=== PATIENT | female | born 2000 | race Caucasian/White ===

== ENCOUNTER 2021-02-09 07:28 | Inpatient (IN) | payer BC, SELFPAY ==
[~2021-02-09] VITALS: Ht 170.2 cm; Wt 61.7 kg
[2021-02-09 07:32] VITALS: BP 141/109
[2021-02-09] MEDS ORDERED: FAMOTIDINE 20 MG/2 ML VIAL IVP ONE (07:45)
[2021-02-09] MEDS ORDERED: KETOROLAC 15 MG/ML VIAL IVP ONE (07:45)
[2021-02-09] MEDS ORDERED: ONDANSETRON 4 MG/2 ML VIAL IVP ONE ×2 (07:45→08:10)
[2021-02-09] MEDS: NACL 0.9% 1,000 ML IV SCH ×2 (07:57→08:01)
[2021-02-09 08:05] LABS: BASOPHILS # (AUTO) 0.1 K/uL (0.00-0.22); BASOPHILS % (AUTO) 0.6 % (0.0-2.0); EOSINOPHILS % (AUTO) 0.3 % (0.0-4.0); HEMATOCRIT 35.7 % (36-48); HEMOGLOBIN 11.2 g/dL (12.0-16.0); LYMPHOCYTES # (AUTO) 2.1 K/uL (2.5-16.5); LYMPHOCYTES % (AUTO) 17.1 % (20.5-51.1); MEAN CORPUSCULAR HEMOGLOBIN 23 pg (27-31); MEAN CORPUSCULAR HGB CONC 31 g/dL (33-37); MONOCYTES # (AUTO) 0.8 K/uL (0.8-1.0); MONOCYTES % (AUTO) 6.7 % (1.7-9.3); NEUTROPHILS # (AUTO) 9.4 K/uL (1.8-7.7); NEUTROPHILS % (AUTO) 75.3 % (42.2-75.2); PLATELET COUNT (AUTO) 380 K/uL (140-450); RED BLOOD CELL COUNT(AUTO) 4.77 MIL/uL (4.20-5.40); WHITE BLOOD COUNT (AUTO) 12.5 K/uL (4.5-11.0)
[2021-02-09 08:14] LABS: ANION GAP 16.7 (8-16); CARBON DIOXIDE 24.5 mmol/L (21-32); CREATININE 0.9 mg/dL (0.6-1.3); POTASSIUM 3.2 mmol/L (3.5-5.1)
[2021-02-09] MEDS ORDERED: LORazepam 2 MG/ML VIAL IVP ONE ×2 (08:15→10:20)
[2021-02-09] MEDS ORDERED: LORazepam 2 MG/ML VIAL ONE (08:17)
[2021-02-09 08:20] LABS: ALBUMIN 4.8 g/dL (3.4-5.0); TOTAL BILIRUBIN 0.4 mg/dL (0.0-1.0)
[2021-02-09] MEDS ORDERED: NACL 0.9% 1,000 ML IV ONE (08:50)
[2021-02-09] MEDS ORDERED: METOCLOPRAMIDE 10 MG/2 ML INJ VIAL IVP ONE ×2 (09:15→10:20)
[2021-02-09] MEDS ORDERED: diphenhydrAMINE 50 MG/ML VIAL IVP ONE (09:15)
[2021-02-09 09:30] LABS: BILIRUBIN,URINE NEGATIVE (NEGATIVE); BLOOD, URINE NEGATIVE (NEGATIVE); COLOR,URINE YELLOW (YELLOW); LEUKOCYTE ESTERASE ,URINE TRACE (NEGATIVE); NITRITE, URINE NEGATIVE (NEGATIVE); UGLUCOSE NEGATIVE (NEGATIVE)
[2021-02-09 09:39] LABS: APPEARANCE,URINE SLIGHTLY HAZY (CLEAR)
[2021-02-09 09:40] LABS: RBC,URINE 0-5 /HPF (0-5); WBC,URINE 0-5 /HPF (0-5)
[2021-02-09] MEDS ORDERED: KCL 20 MEQ/WATER INJ PREMIX 200 ML IV PRN (12:05)
[2021-02-09] MEDS ORDERED: ACETAMINOPHEN 325 MG TAB PO PRN (12:05)
[2021-02-09] MEDS ORDERED: HYDROcodone/APAP 7.5/325 MG 1 TAB PO PRN (12:05)
[2021-02-09] MEDS ORDERED: DOCUSATE SODIUM 100 MG GELCAP PO PRN (12:05)
[2021-02-09] MEDS ORDERED: guaiFENesin DM 200/20 MG-10 ML 10 ML UDC PO PRN (12:05)
[2021-02-09] MEDS ORDERED: cefTRIAXone 1,000 MG in LIDOCAINE MPF 1% 2.1 ML IM SCH (12:10)
[2021-02-09] MEDS: DEXT 5% /NACL 0.9% 1,000 ML IV SCH ×2 (12:22→23:08)
[2021-02-09 12:49] LABS: PROTHROMBIN TIME 10.2 secs (10.8-13.4)
[2021-02-09 12:57] LABS: FREE T4 (FREE THYROXINE) 1.44 ng/dL (0.76-1.46); PHOSPHORUS 3.4 mg/dL (2.5-4.9); THYROID STIMULATING HORMONE 1.95 uIU/mL (0.34-3.74)
[2021-02-09] MEDS: ONDANSETRON 8 MG in NACL 0.9% 50 ML IV PRN ×2 (13:45→21:37)
[2021-02-09] MEDS: LORazepam 2 MG/ML VIAL IVP PRN (13:58)
[2021-02-09] MEDS: MORPHINE SULFATE 2 MG/ML SYR IVP PRN ×2 (13:58→20:50)
[2021-02-09] MEDS ORDERED: POTASSIUM CHLORIDE 40 MEQ, LIDOCAINE MPF 1% 25 MG in NACL 0.9% 250 ML IV SCH (14:30)
[2021-02-09 15:11] VITALS: BP 138/96
[2021-02-09 16:00] VITALS: BP 134/94
[2021-02-09 18:16] LABS: BARBITURATE, URINE NEGATIVE ng/ml (NEG <=200); BENZODIAZEPINE, URINE NEGATIVE ng/mL (NEG <=200); CANNABINOID, URINE POSITIVE ng/mL (NEG <=50); COCAINE, URINE NEGATIVE ng/mL (NEG <=300); OPIATE, URINE NEGATIVE ng/mL (NEG <=2000); PHENCYCLIDINE SCREEN,URINE NEGATIVE ng/mL (NEG <=25)
[2021-02-09 20:00] VITALS: BP 148/92
[2021-02-10 01:10] LABS: CHOL/HDL RATIO 2.3 (1-4.5)
[2021-02-10] MEDS: ONDANSETRON 4 MG/2 ML VIAL IM/IVP PRN ×2 (01:23→23:13)
[2021-02-10] MEDS: LORazepam 2 MG/ML VIAL IVP PRN ×3 (01:24→18:49)
[2021-02-10] MEDS: ONDANSETRON 8 MG in NACL 0.9% 50 ML IV PRN ×3 (03:38→18:59)
[2021-02-10 04:00] VITALS: BP 136/91
[2021-02-10] MEDS: DEXT 5% /NACL 0.9% 1,000 ML IV SCH ×3 (04:05→20:05)
[2021-02-10] MEDS: MORPHINE SULFATE 2 MG/ML SYR IVP PRN ×3 (05:53→18:50)
[2021-02-10 05:56] LABS: ANION GAP 16.4 (8-16); CARBON DIOXIDE 26.1 mmol/L (21-32); CREATININE 0.7 mg/dL (0.6-1.3); POTASSIUM 3.5 mmol/L (3.5-5.1)
[2021-02-10 06:04] LABS: BASOPHILS % (AUTO) 0.4 % (0.0-2.0); HEMATOCRIT 31.8 % (36-48); HEMOGLOBIN 10.3 g/dL (12.0-16.0); LYMPHOCYTES # (AUTO) 1.3 K/uL (2.5-16.5); MEAN CORPUSCULAR HEMOGLOBIN 24 pg (27-31); MEAN CORPUSCULAR HGB CONC 32 g/dL (33-37); MEAN CORPUSCULAR VOLUME 74.7 fL (80-94); MONOCYTES # (AUTO) 0.8 K/uL (0.8-1.0); MONOCYTES % (AUTO) 7.6 % (1.7-9.3); NEUTROPHILS # (AUTO) 7.9 K/uL (1.8-7.7); PLATELET COUNT (AUTO) 297 K/uL (140-450); RED BLOOD CELL COUNT(AUTO) 4.26 MIL/uL (4.20-5.40); RED CELL DISTRIBUTION WIDTH 18.9 % (11.6-13.7)
[2021-02-10 08:00] VITALS: BP 114/66
[2021-02-10] MEDS: PANTOPRAZOLE 40 MG INJ VIAL IVP SCH (10:00)
[2021-02-10 10:07] LABS: T4 (THYROXINE) 10.3 ug/dL (4.5-12.0)
[2021-02-10 16:00] VITALS: BP 139/89
[2021-02-10 20:00] VITALS: BP 118/79
[2021-02-11] MEDS: MORPHINE SULFATE 2 MG/ML SYR IVP PRN ×4 (00:52→21:02)
[2021-02-11] MEDS: DEXT 5% /NACL 0.9% 1,000 ML IV SCH ×2 (01:03→12:45)
[2021-02-11] MEDS: LORazepam 2 MG/ML VIAL IVP PRN ×3 (03:01→21:06)
[2021-02-11 04:00] VITALS: BP 147/83
[2021-02-11] MEDS: ONDANSETRON 8 MG in NACL 0.9% 50 ML IV PRN ×2 (05:42→21:11)
[2021-02-11 08:00] VITALS: BP 146/95
[2021-02-11] MEDS: PANTOPRAZOLE 40 MG INJ VIAL IVP SCH (08:25)
[2021-02-11] MEDS: ONDANSETRON 4 MG/2 ML VIAL IM/IVP PRN ×3 (08:25→23:18)
[2021-02-11 11:19] LABS: BASOPHILS % (AUTO) 0.5 % (0.0-2.0); EOSINOPHILS % (AUTO) 0.2 % (0.0-4.0); HEMATOCRIT 32.9 % (36-48); HEMOGLOBIN 10.4 g/dL (12.0-16.0); LYMPHOCYTES # (AUTO) 1.2 K/uL (2.5-16.5); LYMPHOCYTES % (AUTO) 15.8 % (20.5-51.1); MEAN CORPUSCULAR HEMOGLOBIN 24 pg (27-31); MEAN CORPUSCULAR HGB CONC 32 g/dL (33-37); MEAN CORPUSCULAR VOLUME 75.3 fL (80-94); MONOCYTES # (AUTO) 0.7 K/uL (0.8-1.0); MONOCYTES % (AUTO) 8.9 % (1.7-9.3); NEUTROPHILS # (AUTO) 5.7 K/uL (1.8-7.7); NEUTROPHILS % (AUTO) 74.6 % (42.2-75.2); PLATELET COUNT (AUTO) 284 K/uL (140-450); RED BLOOD CELL COUNT(AUTO) 4.38 MIL/uL (4.20-5.40); RED CELL DISTRIBUTION WIDTH 19.1 % (11.6-13.7); WHITE BLOOD COUNT (AUTO) 7.7 K/uL (4.5-11.0)
[2021-02-11 11:37] LABS: ANION GAP 14.3 (8-16); CARBON DIOXIDE 25.9 mmol/L (21-32); CREATININE 0.6 mg/dL (0.6-1.3); POTASSIUM 3.2 mmol/L (3.5-5.1)
[2021-02-11 16:00] VITALS: BP 139/81
[2021-02-11 20:00] VITALS: BP 143/102
[2021-02-11] MEDS: ZOLPIDEM 5 MG TAB PO PRN (23:47)
[2021-02-12] MEDS: DEXT 5% /NACL 0.9% 1,000 ML IV SCH ×3 (01:26→18:37)
[2021-02-12] MEDS: MORPHINE SULFATE 2 MG/ML SYR IVP PRN ×2 (01:37→06:51)
[2021-02-12 04:00] VITALS: BP 147/116
[2021-02-12] MEDS: ONDANSETRON 8 MG in NACL 0.9% 50 ML IV PRN ×3 (04:57→23:00)
[2021-02-12] MEDS: LORazepam 2 MG/ML VIAL IVP PRN ×3 (05:12→22:58)
[2021-02-12 08:00] VITALS: BP 145/95
[2021-02-12] MEDS: PANTOPRAZOLE 40 MG INJ VIAL IVP SCH (10:02)
[2021-02-12] MEDS: ONDANSETRON 4 MG/2 ML VIAL IM/IVP PRN ×2 (11:13→18:45)
[2021-02-12] MEDS: KETOROLAC 30 MG/ML VIAL IVP PRN ×3 (11:13→23:31)
[2021-02-12 11:32] LABS: ANION GAP 15.8 (8-16); CARBON DIOXIDE 26.9 mmol/L (21-32); CREATININE 0.7 mg/dL (0.6-1.3); POTASSIUM 3.7 mmol/L (3.5-5.1)
[2021-02-12 16:00] VITALS: BP 142/93
[2021-02-12 20:00] VITALS: BP 136/98
[2021-02-12] MEDS: ZOLPIDEM 5 MG TAB PO PRN (23:37)
[2021-02-13] MEDS: DEXT 5% /NACL 0.9% 1,000 ML IV SCH ×4 (01:00→21:01)
[2021-02-13] MEDS: ONDANSETRON 4 MG/2 ML VIAL IM/IVP PRN ×5 (02:56→22:23)
[2021-02-13 04:00] VITALS: BP 143/93
[2021-02-13] MEDS: KETOROLAC 30 MG/ML VIAL IVP PRN ×3 (05:34→21:04)
[2021-02-13] MEDS: PANTOPRAZOLE 40 MG INJ VIAL IVP SCH (09:53)
[2021-02-13] MEDS: LORazepam 2 MG/ML VIAL IVP PRN ×2 (09:54→18:35)
[2021-02-13 20:00] VITALS: BP 147/94
[2021-02-14] MEDS: ONDANSETRON 4 MG/2 ML VIAL IM/IVP PRN ×2 (02:24→06:05)
[2021-02-14] MEDS: LORazepam 2 MG/ML VIAL IVP PRN (02:24)
[2021-02-14] MEDS: DEXT 5% /NACL 0.9% 1,000 ML IV SCH (03:40)
[2021-02-14 04:00] VITALS: BP 131/95
[2021-02-14] MEDS: KETOROLAC 30 MG/ML VIAL IVP PRN (05:51)
[2021-02-14 08:57] LABS: BASOPHILS % (AUTO) 0.6 % (0.0-2.0); EOSINOPHILS % (AUTO) 0.5 % (0.0-4.0); HEMATOCRIT 37.9 % (36-48); LYMPHOCYTES # (AUTO) 1.8 K/uL (2.5-16.5); LYMPHOCYTES % (AUTO) 22.7 % (20.5-51.1); MEAN CORPUSCULAR HEMOGLOBIN 24 pg (27-31); MEAN CORPUSCULAR HGB CONC 32 g/dL (33-37); MEAN CORPUSCULAR VOLUME 74.6 fL (80-94); MONOCYTES # (AUTO) 0.9 K/uL (0.8-1.0); MONOCYTES % (AUTO) 11.3 % (1.7-9.3); NEUTROPHILS # (AUTO) 5.1 K/uL (1.8-7.7); NEUTROPHILS % (AUTO) 64.9 % (42.2-75.2); PLATELET COUNT (AUTO) 325 K/uL (140-450); RED BLOOD CELL COUNT(AUTO) 5.07 MIL/uL (4.20-5.40); RED CELL DISTRIBUTION WIDTH 18.5 % (11.6-13.7); WHITE BLOOD COUNT (AUTO) 7.9 K/uL (4.5-11.0)
[2021-02-14 09:01] LABS: CREATININE 0.8 mg/dL (0.6-1.3)
[2021-02-14 09:38] LABS: POTASSIUM 2.8 mmol/L (3.5-5.1)
[2021-02-14 09:40] LABS: ANION GAP 17.5 (8-16); CARBON DIOXIDE 24.3 mmol/L (21-32)
== END 2021-02-14 09:55 | disposition left against medical advice (07) | DRG 871 ==
LOC: MED 07:28 → MTU 11:22
PROVIDERS: ADMIT Family Medicine; ATTEND Family Medicine
DX: A41.9 Sepsis, unspecified organism (principal); G92 Toxic encephalopathy; N39.0 Urinary tract infection, site not specified; E86.0 Dehydration; E87.6 Hypokalemia; F12.90 Cannabis use, unspecified, uncomplicated; R11.2 Nausea with vomiting, unspecified; F17.210 Nicotine dependence, cigarettes, uncomplicated; D72.829 Elevated white blood cell count, unspecified; F41.0 Panic disorder [episodic paroxysmal anxiety]; Z53.29 Procedure and treatment not carried out because of patient's decision for other reasons; Z88.8 Allergy status to other drugs, medicaments and biological substances; Z76.5 Malingerer [conscious simulation]; D64.9 Anemia, unspecified; Z20.822 Contact with and (suspected) exposure to COVID-19
CPT/HCPCS: 36415; 71045; 80048; 80053; 80305; 81001; 82150; 83036; 83690; 83735; 83880; 84100; 84436; 84439; 84443; 84479; 84484; 85025; 85610; 85730; 87081; 96361; 96374; 96375; 96376; 99285; C9113; J0696; J1200; J1885; J2001; J2060; J2270; J2405; J2765; J3480; J3490; J7030; J7060

== ENCOUNTER 2021-02-20 15:27 | Inpatient (IN) | payer BC, SELFPAY ==
[~2021-02-20] VITALS: Ht 170.2 cm; Wt 59.9 kg
[2021-02-20 15:49] VITALS: BP 132/99
--- NOTE | 2021-02-20 15:55 | NUR ---
Patient wheelchaired to bed 06.
[2021-02-20] MEDS ORDERED: diphenhydrAMINE 50 MG/ML VIAL IVP ONE (16:00)
[2021-02-20] MEDS ORDERED: NACL 0.9% 1,000 ML IV SCH (16:00)
[2021-02-20] MEDS ORDERED: PROCHLORPERAZINE 10 MG/2 ML VIAL IVP ONE (16:00)
--- NOTE | 2021-02-20 16:13 | NUR ---
RAD at bedside.
--- NOTE | 2021-02-20 16:25 | NUR ---
Dr. Barnett is evaluating patient at bedside.
[2021-02-20] MEDS ORDERED: ONDANSETRON 4 MG/2 ML VIAL IVP ONE (16:30)
[2021-02-20] MEDS ORDERED: MORPHINE SULFATE 4 MG/ML SYR IVP ONE (16:30)
[2021-02-20] MEDS ORDERED: LORazepam 2 MG/ML VIAL IVP ONE (16:30)
--- NOTE | 2021-02-20 16:30 | NUR ---
20 Y/O FEMALE C/O NAUSEA,VOMITING, AND ABDOMINAL PAIN X1 WEEK. PT WAS ADMITTED HERE AND D/C 02/14 WITH SAME COMPLAINT. PT ALSO WENT TO [place] FOR SAME REASON. PT STATES SHE IS NOT ABLE TO KEEP ANYTHING DOWN. PATIENT A&OX4, WHEELCHAIR ASSISTED, STATES SHE NAUSEA/VOMITING X 4-17 EPISODES PER DAY. PATIENT ALSO REPORTS ABDOMINAL PAIN; UMBILICAL REGION; 9/10, PRESSURE/CONSTANT, NON-RADIATING PAIN. DENIES ANY MEDICATION PRIOR TO ARRIVAL. DENIES DIZZINESS, HEADACHE, SOB, COUGH, URINARY SYMPTOMS, BACK PAIN, BLURRY VISION, CHEST PAIN. PT PLACED INTO GOWN; PRINTING PLATE MAKER IN PLACE. BED LOCKED IN LOWEST POSITION, SIDE RAILS X 1, CALL LIGHT IN REACH. PMH:APPENDICITIS ALLERGIES:REGLAN, HEPARIN
--- NOTE | 2021-02-20 16:40 | NUR ---
Blood sample collected, walked to lab and handed to CPT Melvin.
--- NOTE | 2021-02-20 17:09 | NUR ---
Patient reports positive relief after medication administration. Denies any nausea; rates pain 5/10 at this time. shelter monitor remains in place. Emesis bag provided. Bed locked in lowest position, side rails x 1, call light in reach.
[2021-02-20 17:11] LABS: BASOPHILS # (AUTO) 0.1 K/uL (0.00-0.22); BASOPHILS % (AUTO) 0.7 % (0.0-2.0); EOSINOPHILS % (AUTO) 0.3 % (0.0-4.0); HEMATOCRIT 37.8 % (36-48); HEMOGLOBIN 11.9 g/dL (12.0-16.0); LYMPHOCYTES # (AUTO) 1.7 K/uL (2.5-16.5); MEAN CORPUSCULAR HEMOGLOBIN 24 pg (27-31); MEAN CORPUSCULAR HGB CONC 32 g/dL (33-37); MEAN CORPUSCULAR VOLUME 75.5 fL (80-94); MONOCYTES % (AUTO) 11.5 % (1.7-9.3); NEUTROPHILS % (AUTO) 68.5 % (42.2-75.2); PLATELET COUNT (AUTO) 302 K/uL (140-450); RED CELL DISTRIBUTION WIDTH 18.7 % (11.6-13.7); WHITE BLOOD COUNT (AUTO) 8.8 K/uL (4.5-11.0)
[2021-02-20 17:20] LABS: ALBUMIN 4.7 g/dL (3.4-5.0); ANION GAP 17.6 (8-16); CARBON DIOXIDE 26.2 mmol/L (21-32); CREATININE 0.9 mg/dL (0.6-1.3); TOTAL BILIRUBIN 0.5 mg/dL (0.0-1.0)
[2021-02-20 17:22] LABS: POTASSIUM 2.8 mmol/L (3.5-5.1)
[2021-02-20] MEDS ORDERED: POTASSIUM CHL 20 MEQ/NACL 0.9% 1,000 ML IV ONE (17:25)
[2021-02-20] MEDS ORDERED: NACL 0.9% 1,000 ML IV ONE (17:50)
--- NOTE | 2021-02-20 19:18 | NUR ---
Report and transfer of care given to RAJANI Israel.
--- NOTE | 2021-02-20 19:18 | NUR ---
Report received from RAJANI Cerda for continuity of care.
--- NOTE | 2021-02-20 19:19 | NUR ---
Patient appears to be resting comfortably in bed. low-fowlers. Pain a 2/10 at the moment. Vital Signs within normal limits. Respirations even and unlabored. Safety measures in place. Will continue to monitor patient.
--- NOTE | 2021-02-20 20:00 | NUR ---
RECEIVED REPORT OVER THE PHONE FROM ER NURSELUIS FERNANDO PT DUE TO ARRIVE TO THE UNIT VIA W/C.
--- NOTE | 2021-02-20 20:06 | NUR ---
Patient will be admitted to care of Prem WHEAT. Admited to Med-Surg. Will go to room 106A. Belongings list completed. Report to Ethel GERARD.
--- NOTE | 2021-02-20 20:30 | NUR ---
PT ARRIVED VIA W/C TO ROOM 106A, SHE AMBULATED INDEPENDENTLY TO BED A. PT IS AOX4 ON ROOM AIR WITH IV SITE 22G ON RIGHT WRIST. PT IS RUNNING NS WITH KCL, DUE TO LOW POTASSIUM, AT 100MLS/HR. V/S FOLLOWS: T 98.6 P 77 R 20 B/P 141/102 02 98% ON ROOM AIR. PT VOMITED X1 400MLS CLEAR FLUID. WILL RETAKE B/P. PT REQUESTING PAIN AND MEDICATION FOR 8/10 PAIN IN ABDOMEN AND HEADACHE, PT ALSO REQUESTING ANTIANXIETY MEDICATION. WILL CONTACT MD REGARDING REQUESTS.
[2021-02-20 20:45] VITALS: BP 141/102
--- NOTE | 2021-02-20 21:00 | NUR ---
PT GIVEN IVP ZOFRAN FOR NAUSEA AND VOMITING. CONTACTED MD TAVARES BY PHONE, INFORMED HER VIA TEXT OF PT B/P AND REQUESTS FOR PAIN MEDS AND ANTI ANXIETY MEDS. CALLED BACK WITH NEW ORDERS.
[2021-02-20] MEDS ORDERED: HYDROcodone/APAP 5/325 MG 1 TAB TAB PO PRN (21:25)
[2021-02-20] MEDS ORDERED: MORPHINE SULFATE 2 MG/ML SYR IVP PRN (21:25)
[2021-02-20] MEDS: ONDANSETRON 4 MG/2 ML VIAL IVP PRN (21:29)
--- NOTE | 2021-02-20 22:00 | NUR ---
PT IN BED NS WITH KCL RUNNING AT 100MLS/HR VIA RIGHT WRIST 22G ORDERED. PT ASLEEP AT THIS TIME, ALL FALLS PRECAUTIONS IN PLACE.
--- NOTE | 2021-02-21 | NUR ---
PT ASLEEP NO S/S OF PAIN OR DISTRESS NOTED, ALL UNIVERSAL FALLS PRECAUTIONS IN PLACE.
--- NOTE | 2021-02-21 02:00 | NUR ---
ROUNDS DONE, PT ASLEEP IN BED , FLUIDS RUNNING ORDERED. ALL UNIVERSAL FALLS PRECAUTIONS IN PLACE.
--- NOTE | 2021-02-21 04:00 | NUR ---
PT GIVEN MORPHINE FOR SEVERE PAIN, ATTEMPTED IV X1 FOR CT WITH CONTRAST NON SUCCESSFUL. PT VOMITED X1 GREEN BILE. V/S T 98.1 P 80 R 20 B/P 124/81 02 99% ON ROOM AIR.
[2021-02-21] MEDS: LORazepam 2 MG/ML VIAL IM/IVP PRN ×2 (04:43→08:20)
[2021-02-21] MEDS: ONDANSETRON 4 MG/2 ML VIAL IVP PRN (04:43)
--- NOTE | 2021-02-21 04:45 | NUR ---
ATIVAN AND ZOFRAN GIVEN FOR NAUSEA AND ANXIETY. ALL ORDERED PRECAUTIONS IN PLACE.
[2021-02-21 05:39] LABS: BARBITURATE, URINE NEGATIVE ng/ml (NEG <=200); BENZODIAZEPINE, URINE POSITIVE ng/mL (NEG <=200); CANNABINOID, URINE POSITIVE ng/mL (NEG <=50); COCAINE, URINE NEGATIVE ng/mL (NEG <=300); OPIATE, URINE POSITIVE ng/mL (NEG <=2000); PHENCYCLIDINE SCREEN,URINE NEGATIVE ng/mL (NEG <=25)
--- NOTE | 2021-02-21 07:21 | NUR ---
PT ENDORSED BY SERVER SECURITY ADMINISTRATOR FOR CONTINUITY OF CARE. POC DISCUSSED. PT IS ASLEEP IN BED WITH NO SIGNS OF DISTRESS. PT IS ON ROOM AIR WITH CHEST RISING AND FALLING EVEN AND UNLABORED. PT IS MED SURG. PT HAS A 22GAUGE RIGHT WRIST. SAFETY MEASURES IN PLACE, CALL LIGHT WITHIN REACH. WILL CONTINUE TO MONITOR.
[2021-02-21 08:00] VITALS: BP 116/79
[2021-02-21] MEDS ORDERED: MAG SULF 2000 MG/WATER PREMIX 50 ML IV PRN (08:25)
[2021-02-21] MEDS ORDERED: LORazepam 2 MG/ML VIAL IM/IVP PRN (08:25)
[2021-02-21] MEDS ORDERED: ONDANSETRON 4 MG/2 ML VIAL IM/IVP PRN (08:25)
[2021-02-21] MEDS ORDERED: ALUMINUM HYD/MAG/SIMETHICONE 30 ML UDC PO SCH (08:25)
[2021-02-21] MEDS ORDERED: NACL 0.9% 1,000 ML IV SCH (08:25)
[2021-02-21] MEDS ORDERED: HYDROcodone/APAP 5/325 MG 1 TAB TAB PO PRN (08:25)
[2021-02-21] MEDS ORDERED: DOCUSATE SODIUM 100 MG GELCAP PO PRN (08:25)
[2021-02-21] MEDS ORDERED: LIDOCAINE VISCOUS 2% 20 ML UDC PO SCH (08:25)
[2021-02-21] MEDS ORDERED: ACETAMINOPHEN 325 MG TAB PO PRN (08:25)
[2021-02-21] MEDS ORDERED: MORPHINE SULFATE 2 MG/ML SYR IVP PRN (08:25)
[2021-02-21] MEDS ORDERED: DICYCLOMINE HCL LIQUID 10 MG/5 ML UDC PO SCH (08:40)
--- NOTE | 2021-02-21 09:17 | NUR ---
PATIENT HAS BEEN SCREENED AND CATEGORIZED HIGH NUTRITION RISK. PATIENT WILL BE SEEN WITHIN 1-2 DAYS OF ADMISSION. 02/21/21-02/22/[address]
--- NOTE | 2021-02-21 11:34 | NUR ---
PT REFUSED BLOOD DRAW. STATES SHE WANTS TO GO HOME
--- NOTE | 2021-02-21 11:45 | NUR ---
PT SIGNED AMA. PT IS AWARE THAT SHE IS LEAVING AGAINST MEDICAL ADVICE. SHE IS IN STABLE CONDITION WITH NO ACUTE SIGNS OF DISTRESS. ID BADGE CUT UP, IV SITES DISCONTINUED. PT HAS ALL HER BELONGING.
[2021-02-21] MEDS ORDERED: ZOLPIDEM 5 MG TAB PO PRN (21:00)
--- NOTE | 2021-02-22 19:40 | NUR ---
LATE ENTRY- KCL-NS IVF DISCONTINUED AT 2006
== END 2021-02-21 12:02 | disposition left against medical advice (07) | DRG 391 ==
LOC: MED 15:27 → MTU 17:56
DX: K29.70 Gastritis, unspecified, without bleeding (principal); G93.41 Metabolic encephalopathy; Z20.822 Contact with and (suspected) exposure to COVID-19; F41.9 Anxiety disorder, unspecified; E87.6 Hypokalemia; Z53.29 Procedure and treatment not carried out because of patient's decision for other reasons; E86.0 Dehydration; F12.90 Cannabis use, unspecified, uncomplicated; Z88.8 Allergy status to other drugs, medicaments and biological substances; Z90.49 Acquired absence of other specified parts of digestive tract; Z91.14 Patient's other noncompliance with medication regimen
CPT/HCPCS: 36415; 71045; 80053; 80305; 83690; 85025; 87081; 93005; 96361; 96374; 96375; 99285; J0780; J1200; J2060; J2270; J2405; J7030

== ENCOUNTER 2021-02-24 10:28 | Emergency (ER) | payer BC, SELFPAY ==
[~2021-02-24] VITALS: Ht 170.2 cm; Wt 59.0 kg
[2021-02-24 10:29] VITALS: BP 130/112
--- NOTE | 2021-02-24 10:40 | NUR ---
PT AMBULATED TO BED 11.
--- NOTE | 2021-02-24 10:47 | NUR ---
Dr. Monson at the bedside evaluating patient.
--- NOTE | 2021-02-24 10:49 | NUR ---
C/O N/V & MID ABD PAIN X 2 WEEKS. LAST BM 1 WEEK AGO. DC FROM [facility] FOR HYPO K 02/21/21. PMH: APPENDECTOMY. ANXIETY
[2021-02-24] MEDS ORDERED: diphenhydrAMINE 50 MG/ML VIAL IVP ONE ×2 (10:55→13:15)
[2021-02-24] MEDS ORDERED: METOCLOPRAMIDE 10 MG/2 ML INJ VIAL IVP ONE ×2 (10:55→13:15)
[2021-02-24] MEDS ORDERED: NACL 0.9% 1,000 ML IV ONE (10:55)
--- NOTE | 2021-02-24 11:25 | NUR ---
Notified laboratory workerhugo Isaacs that patient needs to be drawn at the bedside. Per Ferny, he will come as soon as possible.
[2021-02-24 12:58] LABS: BASOPHILS % (AUTO) 0.6 % (0.0-2.0); EOSINOPHILS % (AUTO) 0.2 % (0.0-4.0); HEMATOCRIT 31.6 % (36-48); HEMOGLOBIN 10.1 g/dL (12.0-16.0); LYMPHOCYTES # (AUTO) 0.8 K/uL (2.5-16.5); LYMPHOCYTES % (AUTO) 12.8 % (20.5-51.1); MEAN CORPUSCULAR HEMOGLOBIN 24 pg (27-31); MEAN CORPUSCULAR HGB CONC 32 g/dL (33-37); MEAN CORPUSCULAR VOLUME 75.6 fL (80-94); MONOCYTES # (AUTO) 0.5 K/uL (0.8-1.0); NEUTROPHILS # (AUTO) 5.1 K/uL (1.8-7.7); NEUTROPHILS % (AUTO) 78.4 % (42.2-75.2); PLATELET COUNT (AUTO) 254 K/uL (140-450); RED BLOOD CELL COUNT(AUTO) 4.18 MIL/uL (4.20-5.40); RED CELL DISTRIBUTION WIDTH 18.2 % (11.6-13.7); WHITE BLOOD COUNT (AUTO) 6.5 K/uL (4.5-11.0)
[2021-02-24 13:01] LABS: ANION GAP 16.2 (8-16); CARBON DIOXIDE 23.1 mmol/L (21-32); CREATININE 0.6 mg/dL (0.6-1.3); POTASSIUM 3.3 mmol/L (3.5-5.1)
[2021-02-24 13:08] LABS: ALBUMIN 3.9 g/dL (3.4-5.0); TOTAL BILIRUBIN 0.4 mg/dL (0.0-1.0)
--- NOTE | 2021-02-24 13:10 | NUR ---
Pt awake and noted vomiting and severe nausea. Dr. Monson made aware.
--- NOTE | 2021-02-24 13:11 | NUR ---
Patient ambulated to the restroom with a steady gait
[2021-02-24] MEDS ORDERED: METO-485 PO (13:54)
[2021-02-24 14:07] VITALS: BP 148/99
--- NOTE | 2021-02-24 14:07 | NUR ---
Patient discharged with v/s stable. Written and verbal after care instructions given and explained. Patient alert, oriented and verbalized understanding of instructions. Ambulatory with steady gait. All questions addressed prior to discharge. ID band removed. Patient advised to follow up with PMD. Rx of metoclopramide hcl given. Patient educated on indication of medication including possible reaction and side effects. Opportunity to ask questions provided and answered.
== END 2021-02-24 14:07 | disposition home or self-care (01) ==
LOC: MED 10:28
DX: R11.10 Vomiting, unspecified (principal); F17.290 Nicotine dependence, other tobacco product, uncomplicated; F41.9 Anxiety disorder, unspecified; R10.84 Generalized abdominal pain; F12.90 Cannabis use, unspecified, uncomplicated; Z90.49 Acquired absence of other specified parts of digestive tract; Z88.8 Allergy status to other drugs, medicaments and biological substances; Z79.899 Other long term (current) drug therapy
CPT/HCPCS: 36415; 80053; 81025; 83690; 85025; 96361; 96374; 96375; 96376; 99285; J1200; J2765; J7030

== ENCOUNTER 2021-03-09 18:59 | Inpatient (IN) | payer BC, SELFPAY ==
[~2021-03-09] VITALS: Ht 170.2 cm; Wt 55.8 kg
[~2021-03-09 18:59] MED LIST: DEXAMETHASONE 4 MG/ML VIAL ONE; GLYCOPYRROLATE 0.2 MG/ML VIAL ONE; LIDOCAINE 2% 100 MG/5 ML SYR IVP ONE; METO-485 PO; NEOSTIGMINE 1:1000 10 MG/10 ML VIAL ONE; PROPOFOL 200 MG/20 ML VIAL IV ONE; ROCURONIUM 50 MG/5 ML VIAL IV ONE
[2021-03-09 19:18] VITALS: BP 118/73
--- NOTE | 2021-03-09 19:27 | NUR ---
pt ambulated to bed #6
--- NOTE | 2021-03-09 19:30 | NUR ---
20YO F C/O VOMITING X 2 WEEKS. PT REPORTS CONSTANTLY HAVING MORE THAN 10 EPISODES PER DAY. ALSO REPORTS WT LOSS OF 20 LBS IN 2 WEEKS. PT ALSO WITH 9/10 CRAMPING ABDOMINAL PAIN. DENIED FEVER, DIARRHEA. LMP: JANUARY 2021 PMH: APPENDECTOMY (2019), GALLSTONES, OVARIAN CYST ALLERGY: HEPARIN
[2021-03-09] MEDS ORDERED: ONDANSETRON 4 MG/2 ML VIAL IVP ONE (19:35)
[2021-03-09] MEDS ORDERED: DICYCLOMINE 10 MG CAP PO ONE (19:35)
[2021-03-09] MEDS ORDERED: NACL 0.9% 1,000 ML IV SCH (19:35)
[2021-03-09] MEDS ORDERED: KETOROLAC 30 MG/ML VIAL IVP ONE (19:45)
[2021-03-09 20:19] LABS: BASOPHILS # (AUTO) 0.1 K/uL (0.00-0.22); BASOPHILS % (AUTO) 0.8 % (0.0-2.0); EOSINOPHILS # (AUTO) 0.1 K/uL (0-0.4); EOSINOPHILS % (AUTO) 1.2 % (0.0-4.0); HEMATOCRIT 37.7 % (36-48); LYMPHOCYTES # (AUTO) 1.9 K/uL (2.5-16.5); LYMPHOCYTES % (AUTO) 23.8 % (20.5-51.1); MEAN CORPUSCULAR HEMOGLOBIN 24 pg (27-31); MEAN CORPUSCULAR HGB CONC 32 g/dL (33-37); MONOCYTES # (AUTO) 0.9 K/uL (0.8-1.0); MONOCYTES % (AUTO) 11.8 % (1.7-9.3); NEUTROPHILS # (AUTO) 4.9 K/uL (1.8-7.7); NEUTROPHILS % (AUTO) 62.4 % (42.2-75.2); PLATELET COUNT (AUTO) 319 K/uL (140-450); RED BLOOD CELL COUNT(AUTO) 4.96 MIL/uL (4.20-5.40); RED CELL DISTRIBUTION WIDTH 17.8 % (11.6-13.7); WHITE BLOOD COUNT (AUTO) 7.9 K/uL (4.5-11.0)
--- NOTE | 2021-03-09 20:39 | NUR ---
ultrasound at bedside
[2021-03-09 20:42] LABS: ALBUMIN 5.1 g/dL (3.4-5.0); ANION GAP 16.8 (8-16); CARBON DIOXIDE 28.8 mmol/L (21-32); CREATININE 1.1 mg/dL (0.6-1.3); POTASSIUM 3.6 mmol/L (3.5-5.1); TOTAL BILIRUBIN 0.6 mg/dL (0.0-1.0)
[2021-03-09] MEDS ORDERED: MORPHINE SULFATE 4 MG/ML SYR IVP ONE (22:20)
[2021-03-09] MEDS ORDERED: DEXT 5% / NACL 0.9% 500 ML IV SCH (22:55)
--- NOTE | 2021-03-09 22:58 | NUR ---
COVID YANELI SWAB COLLECTED AND SENT TO LAB
[2021-03-09] MEDS ORDERED: DOCUSATE SODIUM 100 MG GELCAP PO PRN (23:20)
[2021-03-09] MEDS ORDERED: ONDANSETRON 4 MG/2 ML VIAL IM/IVP PRN (23:20)
[2021-03-09] MEDS ORDERED: guaiFENesin DM 200/20 MG-10 ML 10 ML UDC PO PRN (23:20)
[2021-03-09] MEDS ORDERED: ACETAMINOPHEN 325 MG TAB PO PRN (23:20)
[2021-03-09] MEDS ORDERED: ZOLPIDEM 5 MG TAB PO PRN (23:20)
[2021-03-09] MEDS ORDERED: HYDROcodone/APAP 7.5/325 MG 1 TAB PO PRN (23:20)
[2021-03-09 23:33] LABS: APPEARANCE,URINE CLEAR (CLEAR); BILIRUBIN,URINE 1+ (NEGATIVE); BLOOD, URINE NEGATIVE (NEGATIVE); COLOR,URINE YELLOW (YELLOW); LEUKOCYTE ESTERASE ,URINE TRACE (NEGATIVE); NITRITE, URINE NEGATIVE (NEGATIVE); PH,URINE 8.5 (5.0-9.0); UGLUCOSE NEGATIVE (NEGATIVE)
[2021-03-09 23:43] LABS: RBC,URINE 0-5 /HPF (0-5)
[2021-03-09 23:45] LABS: BARBITURATE, URINE POSITIVE ng/ml (NEG <=200); BENZODIAZEPINE, URINE POSITIVE ng/mL (NEG <=200); CANNABINOID, URINE POSITIVE ng/mL (NEG <=50); COCAINE, URINE NEGATIVE ng/mL (NEG <=300); OPIATE, URINE NEGATIVE ng/mL (NEG <=2000); PHENCYCLIDINE SCREEN,URINE NEGATIVE ng/mL (NEG <=25)
[2021-03-10 00:12] LABS: CHOL/HDL RATIO 2.8 (1-4.5); FREE T4 (FREE THYROXINE) 1.08 ng/dL (0.76-1.46); MAGNESIUM 1.8 mg/dL (1.8-2.4); PHOSPHORUS 3.8 mg/dL (2.5-4.9); THYROID STIMULATING HORMONE 0.74 uIU/mL (0.34-3.74)
--- NOTE | 2021-03-10 00:15 | NUR ---
Patient will be admitted to care of DR. CHACON. Admited to TELEMETRY. Will go to room 118. Belongings list completed. Report to JANICE JOHNSON. Addendum: 03/10/21 at 0041 by DAVID PT WILL GO TO [place] [id number]
[2021-03-10 01:00] VITALS: BP 111/71
--- NOTE | 2021-03-10 01:00 | NUR ---
Admitted from ER TO MEDICAL SURGICAL UNIT, with chief complaint of NAUSEA, VOMITING AND ABDOMINAL PAIN FOR TWO WEEKS , 20 y/o ,Female, Cooperative, AWAKE, A/OX4. RESPIRATION EVEN AND UNLABORED. IV OF D5 NS AT 100 ML/HR INFUSING, LEFT HAND G22. INDEPENDENT, AMBULATORY TO THE BR. HEAD TO TOE ASSESSMENT DONE WITH CHARGE NURSE REBECCA, SKIN IS INTACT. NPO EXCEPT MEDS. DENIES PAIN 0/10. oriented to call light, bed, phone,television, bathroom, smoking policy,visiting hours, procedures, ID bracelet on. Belongings list checked.
--- NOTE | 2021-03-10 03:00 | NUR ---
SLEEPING COMFORTABLY IN BED.
[2021-03-10 04:00] VITALS: BP 108/67
--- NOTE | 2021-03-10 04:00 | NUR ---
COMFORTABLE IN BED, RESPIRATION EVEN AND UNLABORED. VS STABLE.
[2021-03-10 06:53] LABS: ANION GAP 11.2 (8-16); CARBON DIOXIDE 27.8 mmol/L (21-32); CREATININE 0.7 mg/dL (0.6-1.3)
[2021-03-10 06:58] LABS: BASOPHILS # (AUTO) 0.1 K/uL (0.00-0.22); EOSINOPHILS % (AUTO) 0.3 % (0.0-4.0); HEMATOCRIT 30.1 % (36-48); HEMOGLOBIN 9.7 g/dL (12.0-16.0); LYMPHOCYTES # (AUTO) 2.5 K/uL (2.5-16.5); LYMPHOCYTES % (AUTO) 47.1 % (20.5-51.1); MEAN CORPUSCULAR HEMOGLOBIN 24 pg (27-31); MEAN CORPUSCULAR HGB CONC 32 g/dL (33-37); MEAN CORPUSCULAR VOLUME 75.1 fL (80-94); MONOCYTES # (AUTO) 0.7 K/uL (0.8-1.0); MONOCYTES % (AUTO) 12.3 % (1.7-9.3); NEUTROPHILS # (AUTO) 2.1 K/uL (1.8-7.7); NEUTROPHILS % (AUTO) 39.3 % (42.2-75.2); PLATELET COUNT (AUTO) 214 K/uL (140-450); RED CELL DISTRIBUTION WIDTH 17.4 % (11.6-13.7); WHITE BLOOD COUNT (AUTO) 5.4 K/uL (4.5-11.0)
[2021-03-10] MEDS ORDERED: DEXT 5% /NACL 0.9% 1,000 ML IV SCH (07:05)
--- NOTE | 2021-03-10 07:25 | NUR ---
CONDITION REMAIN STABLE. ENDORSED TO AM SHIFT NURSE FOR CONTINUITY OF CARE.
--- NOTE | 2021-03-10 07:26 | NUR ---
PT ENDORSED BY MACHINE REPAIRER MAINTENANCE NURSE FOR CONTINUITY OF CARE, POC DISCUSSED. PT IS IN STABLE CONDITION ON ROOM AIR WITH CHEST RISING AND FALLING EVEN AND UNLABORED. PT HAS A LEFT HAND 22 GAUGE RUNNING D5NS AT 100 ML. PT IS A&O X4. SKIN INTACT. NO COMPLAINTS OF PAIN AT THIS TIME. ALL SAFETY MEASURES IN PLACE, CALL LIGHT WITHIN REACH. WILL CONTINUE TO MONITOR.
[2021-03-10 08:00] VITALS: BP 112/69
--- NOTE | 2021-03-10 08:06 | NUR ---
PT PROVIDED WITH EAR PLUGS DUE TO COMPLAINTS OF UNABLE TO SLEEP FROM NOISES IN THE ROOM NEXT DOOR.
--- NOTE | 2021-03-10 08:23 | NUR ---
PT REFUSED VITAL SIGNS FROM BEING TAKEN
[2021-03-10] MEDS ORDERED: PANTOPRAZOLE 40 MG TABEC PO SCH (09:00)
[2021-03-10] MEDS: POTASSIUM CHLORIDE 10 MEQ TABER PO PRN ×3 (09:02→21:09)
--- NOTE | 2021-03-10 09:02 | NUR ---
PRN K DUR ADMINISTERED PER PROTOCOL FOR 3.0 POT. LEVEL. EVENS MEDICATION ADMINISTERED. PT TOLERATED ADMINISTRATION, AND EDUCATED. ALL SAFETY MEASURES IN PLACE, CALL LIGHT WITHIN REACH. WILL CONTINUE TO MONITOR.
[2021-03-10 09:24] LABS: PROTHROMBIN TIME 11.5 secs (10.8-13.4)
--- NOTE | 2021-03-10 09:24 | NUR ---
PT REFUSED VITAL SIGNS.
--- NOTE | 2021-03-10 09:30 | NUR ---
DR. CROUCH DISCUSSED SURGERY WITH PT, RISKS AND BENEFITS, OUTCOME, PLAN FOR AFTER SURGERY ALL DISCUSSED. PT VERBALIZED UNDERSTANDING. CONSENT SIGNED. ALL SAFETY MEASURES IN PLACE, CALL LIGHT WITHIN REACH. WILL CONTINUE TO MONITOR.
--- NOTE | 2021-03-10 09:32 | NUR ---
PT TRANSPORTED TO RADIOLOGY FOR CT SCAN OF ABD WITHOUT CONTRAST. PT IN STABLE CONDITION.
--- NOTE | 2021-03-10 09:48 | NUR ---
PT RETURNED FROM RADIOLOGY INSTABLE CONDITION. REHOOKED UP TO IV FLUIDS. SAFETY MEASURES IN PLACE, CALL LIGHT WITHIN REACH. WILL CONTINUE TO MONITOR.
--- NOTE | 2021-03-10 10:00 | NUR ---
PT REQUESTED TO TAKE A SHOWER, IV SITE COVERED AND EDUCATION PROVIDED ON KEEPING IV DRY. PT STABLE.
--- NOTE | 2021-03-10 10:03 | NUR ---
PT GRANDMOTHER CALLED ASKING FOR UPDATE, PT VERBALIZED IT IS OKAY TO GIVE UPDATE AND SPEAK WITH GRANDMA. ALL QUESTIONS ANSWERED.
--- NOTE | 2021-03-10 10:21 | NUR ---
PT FINISHED SHOWERING AND IN BED, IV PATENT AND INTACT. ALL SAFETY MEASURES IN PLACE, CALL LIGHT WITHIN REACH. WILL CONTINUE TO MONITOR
--- NOTE | 2021-03-10 12:37 | NUR ---
DR. CROUCH IS HOLDING OFF ON SURGERY UNTIL CONSULT WITH DR LYNN
--- NOTE | 2021-03-10 13:01 | NUR ---
PATIENT HAS BEEN SCREENED AND CATEGORIZED HIGH NUTRITION RISK. PATIENT WILL BE SEEN WITHIN 1-2 DAYS OF ADMISSION. 03/10/[address]
--- NOTE | 2021-03-10 13:59 | NUR ---
03/10/2021 RD INITIAL ASSESSMENT COMPLETED PLEASE REFER TO NUTRITION ASSESSMENT UNDER CARE ACTIVITY FOR ESTIMATED NUTRITIONAL NEEDS. ADVANCE DIET TOLERATED ONCE APPROPRIATE MAY CONSIDER SUPPLEMENTING WITH ORAL SUPPLEMENT IF PO INTAKE REMAINS LOW AFTER DIET RESUMES RD TO FOLLOW-UP IN 2-3 DAYS PATIENT IS HIGH RISK. NATE CARDENAS, RD
--- NOTE | 2021-03-10 15:06 | NUR ---
PT PICKED UP BY OR NURSE, PT HAND OFF GIVEN TO RN. PT IN STABLE CONDITION.
[2021-03-10] MEDS ORDERED: POTASSIUM CHLORIDE 20% 40 MEQ/15 ML UDC GT SCH (15:45)
[2021-03-10] MEDS: POTASSIUM CHL 20 MEQ/D5-1/2NS 1,000 ML IV SCH ×2 (15:50→22:21)
[2021-03-10] MEDS ORDERED: HYDROmorphone PFS 2 MG/ML SYR ONE ×2 (15:59→17:58)
[2021-03-10] MEDS ORDERED: MAG SULF 2000 MG/WATER PREMIX 50 ML IV SCH (16:00)
--- NOTE | 2021-03-10 16:00 | NUR ---
UNABLE TO TAKE 1600 VITAL SIGNS, PT OFF UNIT
[2021-03-10] MEDS: SENNA 8.6 MG TAB PO SCH (16:50)
[2021-03-10] MEDS: HYDROmorphone 1 MG/ML AMP IVP PRN ×4 (17:04→19:24)
[2021-03-10] MEDS ORDERED: MORPHINE SULFATE 4 MG/ML SYR IVP PRN (17:45)
[2021-03-10] MEDS ORDERED: MORPHINE SULFATE 4 MG/ML SYR ONE (17:46)
--- NOTE | 2021-03-10 18:14 | NUR ---
PT STILL NOT BACK FROM OR
[2021-03-10 18:30] VITALS: BP 129/90
--- NOTE | 2021-03-10 18:30 | NUR ---
PT RETURNED FROM PACU IN STABLE CONDITION; VITAL SIGNS 129/90, PULSE 99, TEMP 98.1 RR 16, PAIN 9/10. LAST PAIN MEDICATION GIVEN AT 1815. PT VOIDED ON BEDPAN. ALL SAFETY MEASURES IN PLACE, CALL LIGHT WITHIN REACH. WILL CONTINUE TO MONITOR.
[2021-03-10] MEDS: METOCLOPRAMIDE 10 MG/2 ML INJ VIAL IVP SCH (18:57)
--- NOTE | 2021-03-10 18:58 | NUR ---
PT REFUSED EVENS MEDICATION. STATED "IT CAUSES ANXIETY". ALL SAFETY MEASURES IN PLACE, VITALS STABLE. ALL SAFETY MEASURES IN PLACE. CALL LIGHT WITH IN REACH. WILL CONTINUE TO MONITOR.
--- NOTE | 2021-03-10 19:21 | NUR ---
PT ENDORSED TO MARKETING TRAINEE FOR CONTINUITY OF CARE.
--- NOTE | 2021-03-10 20:00 | NUR ---
REPORT GIVEN FROM AM SHIFT. PER REPORT PT WAS S/P LAPAROSCOPIC CHOLECYSTECTOMY. BACK FROM SURGERY ABOUT 1830. PT IS ALERT ORIENTED X4. NO S/S OF RESP DISTRESS, NO SOB. SKIN WARM TO TOUCH. PT SAYING THAT SHE HAS EPISODE OF URINARY INCONTINENT, KEEP URINATE LITTLE BY LITTLE AND WITH PAIN. ENSURE PT THAT WILL CALL MD FOR THE ORDER. PT HAS IV LINE TO LEFT HAND NO 22 INTACT WELL. SKIN NON INTACT 4 INCISION ON ABD FROM SURGERY PROCEDURE. PT REFUSED FOR REPOSITION AT THIS TIME. GENTLE CARE GIVEN . KEPT CLEAN AND DRY.CALL LIGHT IN REACH.
--- NOTE | 2021-03-10 20:26 | NUR ---
PLACED CALL TO AND REPORT THAT PT HAS EPISODE OF URINARY INCONTINENT AND C/O PAIN. ALSO UPDATE UA RESULT TO MD. PER MD TO START PT WITH ROCEPHIN 1 GR Q DAILY. ORDER NOTED AND CARRIED OUT. PT MADE AWARE THE NEW ORDER.
[2021-03-10] MEDS ORDERED: cefTRIAXone 1,000 MG VIAL ONE (20:41)
[2021-03-10] MEDS: POLYETHYLENE GLYCOL 17 GM/PKT PO SCH (21:00)
[2021-03-10] MEDS: PANTOPRAZOLE 40 MG TABEC PO SCH (21:00)
[2021-03-10] MEDS: AMITRIPTYLINE 25 MG TAB PO SCH (21:08)
[2021-03-10] MEDS: clonazePAM 0.5 MG TAB PO SCH (21:08)
[2021-03-10] MEDS: HYDROcodone/APAP 5/325 MG 1 TAB TAB PO PRN (21:10)
[2021-03-10] MEDS ORDERED: MAG SULF 2000 MG/WATER PREMIX 50 ML IV ONE (21:16)
--- NOTE | 2021-03-10 21:30 | NUR ---
NOTED THAT POTASSIUM WAS LOW 3.0 AND POTASSIUM WAS NOT GIVEN YET D/T PT WAS ON SURGERY. PRN POTASSIUM PO GIVEN ORDER.
--- NOTE | 2021-03-10 22:30 | NUR ---
PT MAGNESIUM LEVEL WAS LOW 1.8 AND MED NOT GIVEN YET D/T PT STILL ON SURGERY.MAG 2 GR IN D5 50 CC GIVEN ORDER. ALSO IVF CHANGE TO D5 NACL 0.45% WITH KCL 20 ZEB STARTED WITH 100 CC/HR. PT REFUSED THE MIRALAX AT THIS TIME. TEACHING GIVEN AND PT SAID SHE WILL TAKING TOMORROW.
[2021-03-11] VITALS: BP 136/80
[2021-03-11] MEDS: METOCLOPRAMIDE 10 MG/2 ML INJ VIAL IVP SCH ×4 (01:00→19:00)
[2021-03-11] MEDS: HYDROmorphone 1 MG/ML AMP IVP PRN ×3 (02:15→13:11)
--- NOTE | 2021-03-11 03:00 | NUR ---
PT WAS C/O SEVERE PAIN 8/10 TO ABD SURGERY SITE. PRN DILAUDID GIVEN AND LINSEY WELL.
--- NOTE | 2021-03-11 05:00 | NUR ---
AM CARE GIVEN. PT STILL INCONTINENT. KEPT CLEAN AND DRY.
--- NOTE | 2021-03-11 07:30 | NUR ---
REPORT RECEIVED FROM SOLE POLISHER NURSE, PT AWAKE RESTING QUIETLY IN BED, OX4, RESP EVEN UNLABORED ON RA, SKIN WARM DRY COLOR WNL, CAP REFILL <3 IV TO LEFT HAND IVF INFUSING, SITE WNL, ABD TENDER TO SLIGHT TOUCH, SURGICAL WOUNDS WELL APPROXIMATED WITH DERMABOND, CLEAN AND DRY, PT REPORTS SEVER PAIN IN ABD 10/10, WILL MEDICATE PER ORDER, ALL SAFETY MEASURES IN PLACE, PLAN OF CARE DISCUSSED, PT REFUSES TO MOVE/AMBULATE/SITUP DUE TO PAIN, EDUCATED ON IMPORTANCE OF EARLY AMBULATION POST OP, PT AGREEABLE TO TRY AFTER PAIN IS MORE MANAGEABLE.
[2021-03-11] MEDS: SENNA 8.6 MG TAB PO SCH ×3 (07:49→16:09)
[2021-03-11] MEDS: POLYETHYLENE GLYCOL 17 GM/PKT PO SCH ×2 (07:50→20:53)
[2021-03-11] MEDS: PANTOPRAZOLE 40 MG TABEC PO SCH (07:50)
[2021-03-11 08:00] VITALS: BP 125/85
[2021-03-11] MEDS: clonazePAM 0.5 MG TAB PO SCH ×2 (08:05→20:53)
--- NOTE | 2021-03-11 08:05 | NUR ---
PT C/O SEVER ABD PAIN 10/, PRN DILAUDID GIVEN, AM MEDS GIVEN, PT SWALLOWS WELL.
[2021-03-11 08:08] LABS: T4 (THYROXINE) 6.4 ug/dL (4.5-12.0)
[2021-03-11 11:33] LABS: BASOPHILS % (AUTO) 0.1 % (0.0-2.0); HEMATOCRIT 34.5 % (36-48); HEMOGLOBIN 10.9 g/dL (12.0-16.0); LYMPHOCYTES # (AUTO) 0.9 K/uL (2.5-16.5); MEAN CORPUSCULAR HEMOGLOBIN 24 pg (27-31); MEAN CORPUSCULAR HGB CONC 32 g/dL (33-37); MEAN CORPUSCULAR VOLUME 76.3 fL (80-94); MONOCYTES # (AUTO) 1.2 K/uL (0.8-1.0); MONOCYTES % (AUTO) 9.2 % (1.7-9.3); NEUTROPHILS # (AUTO) 11.2 K/uL (1.8-7.7); NEUTROPHILS % (AUTO) 83.7 % (42.2-75.2); PLATELET COUNT (AUTO) 266 K/uL (140-450); RED BLOOD CELL COUNT(AUTO) 4.52 MIL/uL (4.20-5.40); RED CELL DISTRIBUTION WIDTH 17.8 % (11.6-13.7); WHITE BLOOD COUNT (AUTO) 13.4 K/uL (4.5-11.0)
[2021-03-11 11:45] LABS: ANION GAP 16.8 (8-16); CARBON DIOXIDE 23.5 mmol/L (21-32); CREATININE 0.6 mg/dL (0.6-1.3); POTASSIUM 4.3 mmol/L (3.5-5.1)
[2021-03-11] MEDS: POTASSIUM CHL 20 MEQ/D5-1/2NS 1,000 ML IV SCH (11:50)
--- NOTE | 2021-03-11 12:35 | NUR ---
GRANDMOTHER AT BEDSIDE
--- NOTE | 2021-03-11 13:02 | NUR ---
PT UP AMBULATED DOWN HALLWAY WITH SOME ASSIST, STEADY GAIT, LINSEY WELL
[2021-03-11] MEDS: HYDROcodone/APAP 5/325 MG 1 TAB TAB PO PRN ×2 (14:05→20:52)
--- NOTE | 2021-03-11 15:49 | NUR ---
RECEIVED HANDOFF FROM JANIA GERARD. PT IS ALERT AND ORIENTED X 4. PT IS ON ROOM AIR WITH RESPIRATIONS EVEN AND UNLABORED. PT IS SR ON THE MONITOR. FOR ACCESS PT HAS L H 22 G, WITH D5NS RUNNING AT 100 ML/HR. PT IS SITTING WITH HOB AT 30 DEG, SAFETY MEASURES IN PLACE. CALL LIGHT WITHIN REACH.
[2021-03-11 16:00] VITALS: BP 112/64
--- NOTE | 2021-03-11 16:14 | NUR ---
PT C/O ACHING ABDOMINAL PAIN 12/18, TYLENOL ADMINISTERED PRN.
--- NOTE | 2021-03-11 19:04 | NUR ---
PT REFUSING REGLAN BECAUSE SHE STATES IT MAKES HER FEEL JITTERY
--- NOTE | 2021-03-11 19:26 | NUR ---
HANDOFF GIVEN TO METHODS AND PROCEDURES ANALYST RN FOR CONTINUITY OF CARE
[2021-03-11] MEDS: AMITRIPTYLINE 25 MG TAB PO SCH (20:52)
[2021-03-12] VITALS: BP 113/70
[2021-03-12] MEDS: METOCLOPRAMIDE 10 MG/2 ML INJ VIAL IVP SCH ×4 (01:00→19:00)
[2021-03-12] MEDS: HYDROcodone/APAP 5/325 MG 1 TAB TAB PO PRN (04:29)
--- NOTE | 2021-03-12 07:36 | NUR ---
RECEIVED BEDSIDE REPORT FROM EDUCATIONAL RESOURCE COORDINATOR NURSE. PATIENT SUPINE IN BED, SLEEPING, ANSWERS TO NAME, ABLE TO MAKE NEEDS KNOWN. BREATHING EVEN AND UNLABORED, NO SIGNS OF ACUTE DISTRESS NOTED. LH 22G SL. OIL FILTERS INSPECTOR IN PLACE. SAFETY MEASURES IN PLACE.
[2021-03-12 08:00] VITALS: BP 108/64
[2021-03-12] MEDS: SENNA 8.6 MG TAB PO SCH ×3 (08:28→17:48)
[2021-03-12] MEDS: clonazePAM 0.5 MG TAB PO SCH ×2 (08:28→21:48)
[2021-03-12] MEDS: POLYETHYLENE GLYCOL 17 GM/PKT PO SCH ×2 (08:28→21:49)
--- NOTE | 2021-03-12 08:28 | NUR ---
ADMINISTERED SCHEDULED MEDS PER MD ORDER. MED EDUCATION PROVIDED, PATIENT VERBALIZES UNDERSTANDING. MEDICATIONS TOLERATED WELL WITH SIPS OF WATER.
--- NOTE | 2021-03-12 09:31 | NUR ---
(03/12/21) RD FOLLOW UP COMPLETED PLEASE REFER TO NUTRITION PROGRESS NOTE UNDER CARE ACTIVITY FOR ESTIMATED NUTRITION NEEDS. RD RECOMMENDATIONS: 1. CONTINUE CARDIAC DIET TOLERATED. 2. RD TO FOLLOW-UP IN 2-3 DAYS PATIENT IS HIGH RISK. MAYTE SOLANO MS, RDN
[2021-03-12] MEDS ORDERED: HYDROcodone/APAP 7.5/325 MG 1 TAB PO PRN (12:25)
[2021-03-12] MEDS: MORPHINE SULFATE 2 MG/ML SYR IVP PRN ×2 (13:11→21:55)
--- NOTE | 2021-03-12 13:12 | NUR ---
ADMINISTERED SCHEDULED MEDS PER MD ORDER. PRN MORPHINE ADMINISTERED FOR ABD PAIN, SEE PAIN ASSESSMENT NOTES. MED EDUCATION PROVIDED, PATIENT VERBALIZES UNDERSTANDING. PATIENT SUPINE IN BED, HIGH FOWLERS, HAVING LUNCH AT THIS TIME.
[2021-03-12 16:00] VITALS: BP 115/70
--- NOTE | 2021-03-12 17:58 | NUR ---
RUBY OROZCO ADMINISTERED FOR ABD PAIN, SEE PAIN ASSESSMENT COMMENTS. MED EDUCATION PROVIDED, PATIENT VERBALIZES UNDERSTANDING.
[2021-03-12] MEDS: PANTOPRAZOLE 40 MG TABEC PO SCH (18:43)
--- NOTE | 2021-03-12 19:30 | NUR ---
RECEIVED REPORT FROM AM NURSE. PATIENT AWAKE, ALERT NO ACUTE DISTRESS NOTED. CONSUMED 75% DINNER. CALL LIGHT WITHIN REACH.
[2021-03-12] MEDS: AMITRIPTYLINE 25 MG TAB PO SCH (21:49)
--- NOTE | 2021-03-12 21:51 | NUR ---
ADMINISTERED SCHEDULED MEDS ORDERED.
--- NOTE | 2021-03-12 21:55 | NUR ---
COMPLAINED OF SEVERE ABDOMINAL PAIN. MORPHINE 0.5 MG GIVEN ORDERED.
[2021-03-13] VITALS: BP 120/74
[2021-03-13] MEDS: METOCLOPRAMIDE 10 MG/2 ML INJ VIAL IVP SCH ×2 (00:58→06:22)
--- NOTE | 2021-03-13 07:20 | NUR ---
ENDORSED TO MORNING NURSE FOR CONTINUITY OF CARE. PATIENT IN STABLE CONDITION.
--- NOTE | 2021-03-13 07:21 | NUR ---
RECEIVED REPORT FROM PM NURSE. PATIENT SLEEPING, NO ACUTE DISTRESS NOTED ON RA. CALL LIGHT WITHIN REACH, WILL CONTINUE TO MONITOR PATIENT.
[2021-03-13 08:15] VITALS: BP 114/64
--- NOTE | 2021-03-13 08:57 | NUR ---
DR CROUCH DID HIS ROUNDS, INFORMED PT THAT SHE CAN BE DISCHARGED. INFORMED DR. WADE. NEW ORDER IN FOR PT TO BE DISCHARGE TODAY. PATIENT AWARE. STILL RESTING. WILL CONTINUE TO MONITOR PATIENT.
[2021-03-13] MEDS: MORPHINE SULFATE 2 MG/ML SYR IVP PRN (09:14)
--- NOTE | 2021-03-13 09:15 | NUR ---
PRN PAIN MEDICATION GIVEN. PT C/O ABD PAIN. PT TOLERATED IT. PT AWARE OF PENDING DISCHARGE. FAMILY WILL BE COMING TO PICK HER UP.
[2021-03-13] MEDS: PANTOPRAZOLE 40 MG TABEC PO SCH (10:59)
[2021-03-13] MEDS: clonazePAM 0.5 MG TAB PO SCH (10:59)
[2021-03-13] MEDS: SENNA 8.6 MG TAB PO SCH (11:00)
[2021-03-13] MEDS: POLYETHYLENE GLYCOL 17 GM/PKT PO SCH (11:00)
--- NOTE | 2021-03-13 11:20 | NUR ---
DISCHARGE INSTRUCTIONS AND EDUCATION GIVEN TO PATIENT. PATIENT VERBALIZED UNDERSTANDING ABOUT TAKING MEDICATION PRESCRIBED, WOUND CARE, FOLLOW UP WITH PCP AND DR. CROUCH. IV REMOVED, IV CANNULA INTACT, MINIMAL BLEEDING NOTED. ID BANDS REMOVED. PATIENT WAITING FOR FAMILY TO COME PICK HER UP TO BE DISCHARGED HOME.
[2021-03-13] MEDS ORDERED: DOCU-299 PO (11:27)
--- NOTE | 2021-03-13 11:30 | NUR ---
PATIENT AMBULATED SLOWLY OFF FLOOR TO BE DISCHARGED HOME WITH FAMILY. PT TOOK ALL HER BELONGINGS WITH HER. PATIENT IN STABLE CONDITION.
--- NOTE | 2021-03-13 12:53 | NUR ---
PATIENT LEFT CELL PHONE IN HER ROOM. CALLED HOME # ON [address] AT [phone], VOICEMAIL NOT SET UP SO MESSAGE WAS NOT LEFT. ALSO CALLED SISTER CLINTON PEREZ AT [phone] AND FATHER HUBER JON AT [phone], NO ANSWER, MESSAGE LEFT INFORMING THEM OF BELONGING AND THAT IT WILL BE AT THE CRACKER DOUGH MIXER'S OFFICE FOR THEM TO OBSTETRICS/GYNECOLOGY NURSE. PHONE GIVEN TO CRACKER DOUGH MIXER
--- NOTE | 2021-03-13 13:32 | NUR ---
CALL PLACE TO [phone] LEAVE MESSAGE, CAN SUSHI CHEF PHONE IN SECURITY LOST AND FOUND
== END 2021-03-13 11:45 | disposition home or self-care (01) | DRG 418 ==
LOC: MED 18:59 → MTU 22:55
PROVIDERS: ADMIT Family Medicine; ATTEND Family Medicine
PROC: 0DB68ZX Excision of Stomach, Via Natural or Artificial Opening Endoscopic, Diagnostic (ICD-10-PCS; principal; 2021-03-10 12:55)
PROC: 0FT44ZZ Resection of Gallbladder, Percutaneous Endoscopic Approach (ICD-10-PCS; 2021-03-10 12:55)
DX: K80.20 Calculus of gallbladder without cholecystitis without obstruction (principal); N39.0 Urinary tract infection, site not specified; D50.9 Iron deficiency anemia, unspecified; E78.2 Mixed hyperlipidemia; E87.6 Hypokalemia; F17.200 Nicotine dependence, unspecified, uncomplicated; K20.90 Esophagitis, unspecified without bleeding; Z87.11 Personal history of peptic ulcer disease; Z88.8 Allergy status to other drugs, medicaments and biological substances; E86.0 Dehydration; G89.29 Other chronic pain; R11.10 Vomiting, unspecified; E78.5 Hyperlipidemia, unspecified; F19.10 Other psychoactive substance abuse, uncomplicated; Z20.822 Contact with and (suspected) exposure to COVID-19
CPT/HCPCS: 36415; 71045; 74150; 76705; 80048; 80053; 80305; 81001; 82150; 83690; 83735; 83880; 84100; 84436; 84439; 84443; 84479; 84484; 85025; 85610; 85730; 86677; 87081; 87086; 88304; 96361; 96374; 96375; 99285; J0696; J1100; J1170; J1885; J2001; J2270; J2405; J2704; J2710; J2765; J3475; J3490; J7060; J7120

== ENCOUNTER 2021-03-18 22:07 | Emergency (ER) | payer BC, SELFPAY ==
[~2021-03-18] VITALS: Ht 170.2 cm; Wt 56.7 kg
[~2021-03-18 22:07] MED LIST changes: -DEXAMETHASONE 4 MG/ML VIAL ONE; +DOCU-299 PO; -GLYCOPYRROLATE 0.2 MG/ML VIAL ONE; -LIDOCAINE 2% 100 MG/5 ML SYR IVP ONE; -METO-485 PO; -NEOSTIGMINE 1:1000 10 MG/10 ML VIAL ONE; -PROPOFOL 200 MG/20 ML VIAL IV ONE; -ROCURONIUM 50 MG/5 ML VIAL IV ONE
[2021-03-18 22:31] VITALS: BP 136/103
--- NOTE | 2021-03-18 22:33 | NUR ---
To ED bed 09
--- NOTE | 2021-03-18 22:35 | NUR ---
with pt for MSE
[2021-03-18] MEDS ORDERED: KETOROLAC 15 MG/ML VIAL ONE (22:38)
[2021-03-18] MEDS ORDERED: ONDANSETRON 4 MG/2 ML VIAL IVP ONE (22:40)
[2021-03-18] MEDS ORDERED: NACL 0.9% 1,000 ML IV ONE (22:40)
[2021-03-18] MEDS ORDERED: KETOROLAC 30 MG/ML VIAL IVP ONE (22:40)
--- NOTE | 2021-03-18 23:02 | NUR ---
christina swab collected and sent to lab.
[2021-03-18 23:09] LABS: BASOPHILS % (AUTO) 0.5 % (0.0-2.0); EOSINOPHILS % (AUTO) 0.3 % (0.0-4.0); HEMATOCRIT 34.5 % (36-48); MEAN CORPUSCULAR HEMOGLOBIN 24 pg (27-31); MEAN CORPUSCULAR HGB CONC 32 g/dL (33-37); MEAN CORPUSCULAR VOLUME 76.4 fL (80-94); MONOCYTES # (AUTO) 0.5 K/uL (0.8-1.0); NEUTROPHILS # (AUTO) 8.6 K/uL (1.8-7.7); NEUTROPHILS % (AUTO) 84.2 % (42.2-75.2); PLATELET COUNT (AUTO) 363 K/uL (140-450); RED BLOOD CELL COUNT(AUTO) 4.52 MIL/uL (4.20-5.40); RED CELL DISTRIBUTION WIDTH 18.2 % (11.6-13.7); WHITE BLOOD COUNT (AUTO) 10.2 K/uL (4.5-11.0)
--- NOTE | 2021-03-18 23:12 | NUR ---
pt currently states unable to urinate.
[2021-03-18 23:22] LABS: ALBUMIN 4.7 g/dL (3.4-5.0); CARBON DIOXIDE 24.4 mmol/L (21-32); CREATININE 0.8 mg/dL (0.6-1.3); POTASSIUM 3.4 mmol/L (3.5-5.1); TOTAL BILIRUBIN 0.4 mg/dL (0.0-1.0)
--- NOTE | 2021-03-18 23:45 | NUR ---
taken to CT via w/c
--- NOTE | 2021-03-18 23:53 | NUR ---
returned from CT.
--- NOTE | 2021-03-19 00:31 | NUR ---
pt ambulated to restroom with steady gait.
[2021-03-19] MEDS ORDERED: METOCLOPRAMIDE 10 MG/2 ML INJ VIAL ONE (00:43)
--- NOTE | 2021-03-19 00:44 | NUR ---
episode of vomiting. made aware.
[2021-03-19] MEDS: METOCLOPRAMIDE 10 MG/2 ML INJ VIAL IVP ONE ×2 (00:45→00:51)
[2021-03-19] MEDS ORDERED: HALOPERIDOL IM 5 MG/ML VIAL IVP ONE (00:50)
[2021-03-19] MEDS ORDERED: diphenhydrAMINE 50 MG/ML VIAL IVP ONE (00:50)
[2021-03-19 01:17] LABS: APPEARANCE,URINE CLOUDY (CLEAR); BILIRUBIN,URINE 1+ (NEGATIVE); BLOOD, URINE 3+ (NEGATIVE); COLOR,URINE YELLOW (YELLOW); LEUKOCYTE ESTERASE ,URINE NEGATIVE (NEGATIVE); NITRITE, URINE NEGATIVE (NEGATIVE); UGLUCOSE NEGATIVE (NEGATIVE)
[2021-03-19 01:31] LABS: BARBITURATE, URINE NEGATIVE ng/ml (NEG <=200); BENZODIAZEPINE, URINE POSITIVE ng/mL (NEG <=200); CANNABINOID, URINE POSITIVE ng/mL (NEG <=50); COCAINE, URINE NEGATIVE ng/mL (NEG <=300); OPIATE, URINE NEGATIVE ng/mL (NEG <=2000); PHENCYCLIDINE SCREEN,URINE NEGATIVE ng/mL (NEG <=25)
[2021-03-19] MEDS ORDERED: cefTRIAXone 2,000 MG in DEXTROSE 5% 100 ML IV ONE (02:20)
[2021-03-19] MEDS ORDERED: cefTRIAXone 1,000 MG VIAL ONE (02:26)
[2021-03-19] MEDS ORDERED: cefTRIAXone 2,000 MG VIAL ONE (02:28)
[2021-03-19 03:52] VITALS: BP 111/61
--- NOTE | 2021-03-19 03:52 | NUR ---
pt ambulated to restroom
[2021-03-19] MEDS ORDERED: NITR100C7 PO (04:15)
[2021-03-19] MEDS ORDERED: ONDA4TAB PO (04:15)
--- NOTE | 2021-03-19 04:35 | NUR ---
d/c with VSS. d/c education given. opportunity to ask questions given and answered. rx of bactrim and zofran.
== END 2021-03-19 04:35 | disposition home or self-care (01) ==
LOC: MED 22:07
DX: R11.15 Cyclical vomiting syndrome unrelated to migraine (principal); Z20.822 Contact with and (suspected) exposure to COVID-19; N39.0 Urinary tract infection, site not specified; F12.90 Cannabis use, unspecified, uncomplicated; F17.210 Nicotine dependence, cigarettes, uncomplicated; Z71.6 Tobacco abuse counseling; Z90.49 Acquired absence of other specified parts of digestive tract; Z79.899 Other long term (current) drug therapy; Z88.8 Allergy status to other drugs, medicaments and biological substances
CPT/HCPCS: 36415; 74176; 80053; 80305; 81001; 84702; 85025; 87040; 87086; 87186; 87426; 96361; 96365; 96375; 99284; J0696; J1200; J1630; J1885; J2405; J2765; J7030

== ENCOUNTER 2021-03-21 12:40 | Emergency (ER) | payer BC ==
[~2021-03-21] VITALS: Ht 170.2 cm; Wt 58.1 kg
[~2021-03-21 12:40] MED LIST changes: +NITR100C7 PO; +ONDA4TAB PO
--- NOTE | 2021-03-21 12:54 | NUR ---
PATIENT AMBULATED TO BED 4
[2021-03-21 13:02] VITALS: BP 120/72
--- NOTE | 2021-03-21 13:11 | NUR ---
20 Y/O FEMALE C/O GENERALIZED ABDOMINAL PAIN 06/19 DESCRIBES CRAMPING RADIATES TO LOWER BACK [id number]. PT STATES SHE HAD CHOLECYSTECTOMY [id number] AGO, PRESCRIBED MEDICATIONS BUT HAS NOT TAKEN. PT STATES +N/V 1O TIMES TODAY PRIOR TO ARRIVAL. DENIES FEVER/CHILLS. PMH: ANXIETY SX: CHOLECYSTECTOMY, APPENDECTOMY ALLERGIES: HEPARIN
[2021-03-21] MEDS ORDERED: ONDANSETRON 4 MG/2 ML VIAL IVP ONE ×2 (13:15→15:00)
[2021-03-21] MEDS ORDERED: MORPHINE SULFATE 4 MG/ML SYR ONE (13:30)
[2021-03-21] MEDS ORDERED: MORPHINE SULFATE 4 MG/ML SYR IVP ONE (13:30)
[2021-03-21] MEDS ORDERED: NACL 0.9% 1,000 ML IV ONE (13:30)
--- NOTE | 2021-03-21 13:44 | NUR ---
DR. PRADO INFORMED PT UNABLE TO URINATE AND ORDERED HCG LAB WORK
--- NOTE | 2021-03-21 13:45 | NUR ---
LAB BEDSIDE WITH PT DRAWING BLOOD WORK
--- NOTE | 2021-03-21 13:53 | NUR ---
PT STILL UNABLE TO URINATE. DR. PRADO MADE AWARE
[2021-03-21 13:59] LABS: BASOPHILS # (AUTO) 0.1 K/uL (0.00-0.22); BASOPHILS % (AUTO) 0.9 % (0.0-2.0); EOSINOPHILS # (AUTO) 0.1 K/uL (0-0.4); EOSINOPHILS % (AUTO) 1.1 % (0.0-4.0); HEMATOCRIT 30.5 % (36-48); HEMOGLOBIN 9.6 g/dL (12.0-16.0); LYMPHOCYTES # (AUTO) 1.3 K/uL (2.5-16.5); MEAN CORPUSCULAR HEMOGLOBIN 24 pg (27-31); MEAN CORPUSCULAR HGB CONC 32 g/dL (33-37); MONOCYTES # (AUTO) 0.6 K/uL (0.8-1.0); MONOCYTES % (AUTO) 9.8 % (1.7-9.3); NEUTROPHILS # (AUTO) 4.4 K/uL (1.8-7.7); NEUTROPHILS % (AUTO) 68.2 % (42.2-75.2); PLATELET COUNT (AUTO) 351 K/uL (140-450); RED BLOOD CELL COUNT(AUTO) 3.96 MIL/uL (4.20-5.40); WHITE BLOOD COUNT (AUTO) 6.5 K/uL (4.5-11.0)
--- NOTE | 2021-03-21 14:04 | NUR ---
PT RESTING WITH EYES CLOSED AND LIGHTS OFF. BED TO LOWEST POSITION. EQUAL CHEST RISE AND FALL NOTED. WILL CONTUINE TO MONITOR.
[2021-03-21 14:10] LABS: APPEARANCE,URINE CLEAR (CLEAR); BILIRUBIN,URINE NEGATIVE (NEGATIVE); BLOOD, URINE NEGATIVE (NEGATIVE); COLOR,URINE YELLOW (YELLOW); LEUKOCYTE ESTERASE ,URINE NEGATIVE (NEGATIVE); NITRITE, URINE NEGATIVE (NEGATIVE); UGLUCOSE NEGATIVE (NEGATIVE)
--- NOTE | 2021-03-21 14:19 | NUR ---
PT AMBUALTED TO RESTROOM. GAIT STEADY
--- NOTE | 2021-03-21 14:22 | NUR ---
PT TAKEN TO CT VIA W/C
[2021-03-21 14:28] LABS: ALBUMIN 4.1 g/dL (3.4-5.0); ANION GAP 11.2 (8-16); CARBON DIOXIDE 30.9 mmol/L (21-32); CREATININE 0.8 mg/dL (0.6-1.3); POTASSIUM 3.1 mmol/L (3.5-5.1); TOTAL BILIRUBIN 0.3 mg/dL (0.0-1.0)
--- NOTE | 2021-03-21 14:29 | NUR ---
PT RETURNED TO BEDSIDE FROM CT VIA W/C. PT AMBULATED TO RESTROOM GAIT STEADY
--- NOTE | 2021-03-21 14:35 | NUR ---
DR. HANSON BEDSIDE EVALUATING PT
[2021-03-21] MEDS ORDERED: LORazepam 2 MG/ML VIAL IVP ONE (15:00)
[2021-03-21] MEDS ORDERED: KETOROLAC 15 MG/ML VIAL ONE (15:03)
[2021-03-21] MEDS ORDERED: KETOROLAC 15 MG/ML VIAL IVP ONE (15:05)
[2021-03-21] MEDS: KETOROLAC 30 MG/ML VIAL IVP ONE ×2 (15:18→15:37)
--- NOTE | 2021-03-21 15:37 | NUR ---
PROVIDED PT WITH PHONE BEDSIDE.
[2021-03-21] MEDS ORDERED: NITR100C7 PO (15:49)
[2021-03-21] MEDS ORDERED: CAPS42.514 TP (15:49)
[2021-03-21] MEDS ORDERED: METO-485 PO (15:49)
[2021-03-21] MEDS ORDERED: DIPH25TA53 PO (15:49)
--- NOTE | 2021-03-21 15:56 | NUR ---
Dr. Carcamo at pt bedside for re-evaluation.
[2021-03-21 16:13] VITALS: BP 112/82
--- NOTE | 2021-03-21 16:13 | NUR ---
Patient discharged with v/s stable. Written and verbal after care instructions given and explained. Patient alert, oriented and verbalized understanding of instructions. Ambulatory with steady gait. All questions addressed prior to discharge. ID band removed. Patient advised to follow up with PMD. Rx of CAPSAICIN 42.5 TOPICAL TID, BENADRYL 25 MG PO PRN Q6-8 HRS PRN FOR ITCHING, REGLAN 5 MG PO TID AND MACROBID 100 MG BID given. Patient educated on indication of medication including possible reaction and side effects. Opportunity to ask questions provided and answered.
== END 2021-03-21 16:13 | disposition home or self-care (01) ==
LOC: MED 12:40
DX: R11.2 Nausea with vomiting, unspecified (principal); N39.0 Urinary tract infection, site not specified; F12.90 Cannabis use, unspecified, uncomplicated; Z88.8 Allergy status to other drugs, medicaments and biological substances; Z90.49 Acquired absence of other specified parts of digestive tract; Z79.899 Other long term (current) drug therapy
CPT/HCPCS: 36415; 74176; 80053; 81003; 81025; 83690; 84703; 85025; 96361; 96374; 96375; 96376; 99284; J1885; J2060; J2270; J2405; J7030

== ENCOUNTER 2021-03-23 07:43 | Emergency (ER) | payer BC ==
[~2021-03-23] VITALS: Ht 170.2 cm; Wt 58.1 kg
[~2021-03-23 07:43] MED LIST changes: +CAPS42.514 TP; +DIPH25TA53 PO; +METO-485 PO
[2021-03-23 07:48] VITALS: BP 148/70
--- NOTE | 2021-03-23 07:48 | NUR ---
TO BED AMBULATORY
--- NOTE | 2021-03-23 08:01 | NUR ---
Dr. Farmer is evaluating the patient at bedside.
[2021-03-23] MEDS ORDERED: LORazepam 2 MG/ML VIAL IVP ONE ×2 (08:05→08:15)
[2021-03-23] MEDS ORDERED: NACL 0.9% 1,000 ML IV ONE (08:05)
[2021-03-23] MEDS ORDERED: ONDANSETRON 4 MG/2 ML VIAL IVP ONE (08:05)
[2021-03-23] MEDS ORDERED: KETOROLAC 15 MG/ML VIAL IVP ONE (08:05)
--- NOTE | 2021-03-23 08:09 | NUR ---
20 YO F C/O RECURRING GENERALIZED ABDOMINAL PAIN AND N/V X 1 MONTH. PAIN 9/10, SHARP. ALSO COMPLAINS OF H/A AND BACK PAIN. MEDICATIONS PRESCRIBED FROM PREVIOUS ER VISITS, BUT PT STATES THAT SHE HAS NOT TAKEN THESE BECAUSE SHE HAS NOT REFILLED HER PRESCRIPTIONS. LBM YESTERDAY. LMP 03/16/21. IN ED, VSS. WITH TENDERNESS OF ALL QUADRANTS UPON PALPATION. CHANGED INTO PT GOWN. ERMD MADE AWARE OF PT STATUS. PMH: ANXIETY MEDS: NONE ALLERGY: HEPARIN
--- NOTE | 2021-03-23 08:34 | NUR ---
WASTED 1MG LORAZEPAM.
--- NOTE | 2021-03-23 08:38 | NUR ---
PT GIVEN URINE SPECIMEN CUP. UNABLE TO PRODUCE URINE AT THIS TIME.
[2021-03-23] MEDS ORDERED: diphenhydrAMINE 50 MG/ML VIAL IVP ONE (09:50)
[2021-03-23] MEDS ORDERED: HALOPERIDOL IM 5 MG/ML VIAL IVP ONE (09:50)
[2021-03-23 10:08] LABS: BASOPHILS # (AUTO) 0.1 K/uL (0.00-0.22); BASOPHILS % (AUTO) 0.9 % (0.0-2.0); EOSINOPHILS # (AUTO) 0.1 K/uL (0-0.4); EOSINOPHILS % (AUTO) 1.2 % (0.0-4.0); HEMATOCRIT 30.1 % (36-48); HEMOGLOBIN 9.6 g/dL (12.0-16.0); LYMPHOCYTES # (AUTO) 1.4 K/uL (2.5-16.5); LYMPHOCYTES % (AUTO) 17.4 % (20.5-51.1); MEAN CORPUSCULAR HEMOGLOBIN 25 pg (27-31); MEAN CORPUSCULAR HGB CONC 32 g/dL (33-37); MEAN CORPUSCULAR VOLUME 77.1 fL (80-94); MONOCYTES # (AUTO) 0.7 K/uL (0.8-1.0); MONOCYTES % (AUTO) 8.1 % (1.7-9.3); NEUTROPHILS % (AUTO) 72.4 % (42.2-75.2); PLATELET COUNT (AUTO) 374 K/uL (140-450); RED CELL DISTRIBUTION WIDTH 17.7 % (11.6-13.7); WHITE BLOOD COUNT (AUTO) 8.2 K/uL (4.5-11.0)
[2021-03-23 10:18] LABS: ALBUMIN 3.9 g/dL (3.4-5.0); ANION GAP 13.3 (8-16); CARBON DIOXIDE 25.3 mmol/L (21-32); CREATININE 0.6 mg/dL (0.6-1.3); POTASSIUM 3.6 mmol/L (3.5-5.1); TOTAL BILIRUBIN 0.3 mg/dL (0.0-1.0)
[2021-03-23] MEDS ORDERED: FAMO-90 PO (10:49)
[2021-03-23] MEDS ORDERED: HYDR-1093 PO (10:49)
[2021-03-23] MEDS ORDERED: ONDA-24 PO (10:49)
[2021-03-23 12:15] VITALS: BP 148/70
--- NOTE | 2021-03-23 12:16 | NUR ---
Patient discharged with v/s stable. Written and verbal after care instructions given and explained. Patient alert, oriented and verbalized understanding of instructions. Ambulatory with steady gait. All questions addressed prior to discharge. ID band removed. Patient advised to follow up with PMD. Rx of FAMOTIDINE, HYDROXYZINE, ONDASETRON given. Patient educated on indication of medication including possible reaction and side effects. Opportunity to ask questions provided and answered.
== END 2021-03-23 12:16 | disposition home or self-care (01) ==
LOC: MED 07:43
DX: R11.2 Nausea with vomiting, unspecified (principal); R10.13 Epigastric pain; F12.90 Cannabis use, unspecified, uncomplicated; Z90.49 Acquired absence of other specified parts of digestive tract; Z79.899 Other long term (current) drug therapy; Z88.8 Allergy status to other drugs, medicaments and biological substances
CPT/HCPCS: 36415; 80053; 81002; 81025; 83690; 85025; 93005; 96361; 96374; 96375; 99284; J1200; J1630; J1885; J2060; J2405; J7030

== ENCOUNTER 2021-03-25 13:16 | Emergency (ER) | payer BC ==
[~2021-03-25] VITALS: Ht 170.2 cm; Wt 58.1 kg
[~2021-03-25 13:16] MED LIST changes: +FAMO-90 PO; +HYDR-1093 PO; +ONDA-24 PO
[2021-03-25 13:27] VITALS: BP 145/98
--- NOTE | 2021-03-25 13:30 | NUR ---
PT TO AWAIT IN LOBBY
--- NOTE | 2021-03-25 15:00 | NUR ---
PATIENT LEFT WITHOUT BEING SEEN BY DR. BARRETT. NO FURTHER CARE PROVIDED FOR PATIENT.
== END 2021-03-25 15:00 | disposition left against medical advice (07) ==
LOC: MED 13:16
DX: R11.10 Vomiting, unspecified (principal); Z53.21 Procedure and treatment not carried out due to patient leaving prior to being seen by health care provider

== ENCOUNTER 2021-03-26 06:15 | Inpatient (IN) | payer BC, SELFPAY ==
[~2021-03-26] VITALS: Ht 170.2 cm; Wt 59.4 kg
[2021-03-26 06:20] VITALS: BP 145/90
--- NOTE | 2021-03-26 06:20 | NUR ---
TO BED AMBULATORY
--- NOTE | 2021-03-26 06:33 | NUR ---
20 YO/F BIB SELF W C/O THROBBING/CRAMPING ABDOMINAL PAIN THAT RADIATES TO HER BACK AND HEAD 06/19 X1 MONTH BUT WORSENED THE LAST COUPLE OF DAYS. PATIENT ALSO REPORTS HEADACHE WORSENS W LIGHT AND HAS SOME DIZZYNESS. PATIENT ALSO REPORTS VOMITING X1MO W WEIGHT LOSS OF 20LBS W/IN A MONTH. PATIENT REPORTS SHE IS UNABLE TO KEEP FOOD DOWN. DENIES BLOOD IN VOMIT. DENIES ANY TRAUMA. DENIES FEVER, DIARRHEA, CONSTIPATION, OR URINARY PROBLEMS. BOWELS SOUNDS PRESENT THROUGHOUT, ABDOMEN TENDER TO TOUCH. PATIENT SITTING IN BED VOMITING, BED LOCKED IN LOWEST POSITION, X2 SIDERAILS UP FOR PATIENT SAFETY. PATIENT PLACED ON MONITOR, VSS. WILL CONTINUE TO MONITOR. PMH:ANXIETY, APPENDIX REMOVAL, GALLBLADDER REMOVAL ALLERGIES: HEPARIN
[2021-03-26] MEDS ORDERED: diphenhydrAMINE 50 MG/ML VIAL IVP ONE (06:50)
[2021-03-26] MEDS ORDERED: NACL 0.9% 1,000 ML IV ONE ×2 (06:50→17:35)
[2021-03-26] MEDS ORDERED: HALOPERIDOL IM 5 MG/ML VIAL IVP ONE (06:50)
[2021-03-26] MEDS ORDERED: LORazepam 2 MG/ML VIAL IVP ONE (06:50)
[2021-03-26 07:17] LABS: BASOPHILS # (AUTO) 0.1 K/uL (0.00-0.22); BASOPHILS % (AUTO) 1.1 % (0.0-2.0); EOSINOPHILS % (AUTO) 0.7 % (0.0-4.0); HEMATOCRIT 35.6 % (36-48); HEMOGLOBIN 11.2 g/dL (12.0-16.0); LYMPHOCYTES # (AUTO) 1.2 K/uL (2.5-16.5); LYMPHOCYTES % (AUTO) 17.6 % (20.5-51.1); MEAN CORPUSCULAR HEMOGLOBIN 24 pg (27-31); MEAN CORPUSCULAR HGB CONC 32 g/dL (33-37); MEAN CORPUSCULAR VOLUME 77.4 fL (80-94); MONOCYTES # (AUTO) 0.5 K/uL (0.8-1.0); MONOCYTES % (AUTO) 6.8 % (1.7-9.3); NEUTROPHILS # (AUTO) 5.1 K/uL (1.8-7.7); NEUTROPHILS % (AUTO) 73.8 % (42.2-75.2); PLATELET COUNT (AUTO) 467 K/uL (140-450); RED CELL DISTRIBUTION WIDTH 18.4 % (11.6-13.7); WHITE BLOOD COUNT (AUTO) 6.9 K/uL (4.5-11.0)
--- NOTE | 2021-03-26 07:27 | NUR ---
YANELI SAMPLE DRAWN AND WALKED TO LAB, AND HANDED TO YARA FROM LAB.
--- NOTE | 2021-03-26 07:28 | NUR ---
Pt report given to RAJANI OWENS. Transfer of care at this time.
--- NOTE | 2021-03-26 07:28 | NUR ---
REPORT RECEIVED FROM NICOL GERARD FOR CONTINUITY OF CARE
[2021-03-26 07:31] LABS: ALBUMIN 4.8 g/dL (3.4-5.0); ANION GAP 13.2 (8-16); CARBON DIOXIDE 29.3 mmol/L (21-32); POTASSIUM 3.5 mmol/L (3.5-5.1); TOTAL BILIRUBIN 0.5 mg/dL (0.0-1.0)
[2021-03-26] MEDS ORDERED: ONDANSETRON 4 MG/2 ML VIAL IVP PRN (08:40)
[2021-03-26] MEDS: NACL 0.9% 1,000 ML IV SCH ×3 (09:27→22:00)
--- NOTE | 2021-03-26 10:39 | NUR ---
Patient has eyes closed, appears to be resting comfortably in bed. Vital Signs within normal limits. Respirations even and unlabored. Chest rise is symmetrical. Will continue to monitor.
--- NOTE | 2021-03-26 11:00 | NUR ---
PT REFUSING IV LINE TO BE PLACED AT THIS TIME.
[2021-03-26] MEDS ORDERED: DOCUSATE SODIUM 100 MG GELCAP PO PRN (11:20)
[2021-03-26] MEDS ORDERED: HYDROcodone/APAP 5/325 MG 1 TAB TAB PO PRN (11:20)
[2021-03-26] MEDS ORDERED: ACETAMINOPHEN 325 MG TAB PO PRN (11:20)
[2021-03-26] MEDS ORDERED: LORazepam 2 MG/ML VIAL IM/IVP PRN (11:20)
[2021-03-26] MEDS ORDERED: ZOLPIDEM 5 MG TAB PO PRN (11:20)
[2021-03-26] MEDS ORDERED: MAG SULF 2000 MG/WATER PREMIX 50 ML IV PRN (11:20)
[2021-03-26] MEDS ORDERED: POTASSIUM CHLORIDE 10 MEQ TABER PO PRN (11:20)
[2021-03-26 12:34] LABS: MAGNESIUM 2.1 mg/dL (1.8-2.4); PHOSPHORUS 4.1 mg/dL (2.5-4.9); THYROID STIMULATING HORMONE 0.15 uIU/mL (0.34-3.74)
[2021-03-26 12:55] LABS: PROTHROMBIN TIME 9.9 secs (10.8-13.4)
--- NOTE | 2021-03-26 14:28 | NUR ---
PT AMBULATED TO RESTROOM, STEADY GAIT
--- NOTE | 2021-03-26 15:00 | NUR ---
PT C/O 9/10 PAIN. MORPHINE PRN ADMINISTERED.
[2021-03-26] MEDS: MORPHINE SULFATE 2 MG/ML SYR IVP PRN ×2 (15:01→21:07)
[2021-03-26 15:38] LABS: APPEARANCE,URINE SL CLOUDY (CLEAR); BILIRUBIN,URINE 1+ (NEGATIVE); BLOOD, URINE NEGATIVE (NEGATIVE); COLOR,URINE YELLOW (YELLOW); LEUKOCYTE ESTERASE ,URINE 1+ (NEGATIVE); NITRITE, URINE NEGATIVE (NEGATIVE); PH,URINE 7.5 (5.0-9.0); UGLUCOSE NEGATIVE (NEGATIVE)
[2021-03-26 15:55] LABS: RBC,URINE 0-5 /HPF (0-5); WBC,URINE 16-25 (MOD) /HPF (0-5)
[2021-03-26 16:00] LABS: BARBITURATE, URINE NEGATIVE ng/ml (NEG <=200); BENZODIAZEPINE, URINE POSITIVE ng/mL (NEG <=200); CANNABINOID, URINE POSITIVE ng/mL (NEG <=50); COCAINE, URINE NEGATIVE ng/mL (NEG <=300); OPIATE, URINE NEGATIVE ng/mL (NEG <=2000); PHENCYCLIDINE SCREEN,URINE NEGATIVE ng/mL (NEG <=25)
--- NOTE | 2021-03-26 16:45 | NUR ---
RECEIVED PATIENT REPORT FROM ER NURSE. AWAITING FOR PATIENT ARRIVAL.
--- NOTE | 2021-03-26 16:50 | NUR ---
Patient will be admitted to care of DR TAVARES. Admited to [facility]. Will go to room 115. Belongings list completed. Report to DANG GERARD.
[2021-03-26 16:55] VITALS: BP 110/71
--- NOTE | 2021-03-26 16:55 | NUR ---
RECEIVED PATIENT FROM ER NURSE VIA RONNIE. ADMITTED FOR INTRACTABLE VOMITING, CANNABINOID HYPEREMESIS. PT IS AOX4, ABLE TO MAKE NEEDS KNOWN. RESPIRATIONS EVEN AND UNLABORED. ON ROOM AIR AND NO DISTRESS NOTED. SKIN IS WARM, DRY, AND INTACT. IV SITE ON RH 24G SALINE LOCKED. ABD SOFT, FLAT, AND NON-DISTENDED. BOWEL SOUNDS ACTIVE IN ALL FOUR QUADRANTS. DENIES PAIN AT THE MOMENT. PLAN OF CARE DISCUSSED. SAFETY PRECAUTIONS IN PLACE. BED IN LOW POSITION. CALL LIGHT WITHIN.
--- NOTE | 2021-03-26 17:40 | NUR ---
PATIENT HAS CT W/ CONTRAST ORDER BUT NOT ABLE TO PLACE A CORRECT IV ON PATIENT FOR THE PROCEDURE. NOTIFIED MD AND NEW ORDERS FOR A BOLUS TO GIVE TO PATIENT.
--- NOTE | 2021-03-26 19:30 | NUR ---
ENDORSED TO CRYSTAL GROWING TECHNICIAN NURSE FOR CONTINUITY OF CARE. PT IS STABLE.
--- NOTE | 2021-03-26 19:31 | NUR ---
RECEIVED PATIENT FROM AM NURSE FOR CONTINUITY OF CARE. PATIENT A/A/O X4, RESTING IN BED. RESPIRATORY EVEN AND UNLABORED, ON ROOM AIR, NO SIGN OF DISTRESS NOTED. SKIN WARM, DRY, NON DIAPHORETIC. IV ON RIGHT HAND 24G, INTACT AND PATENT, HAVING BOLUS NOW FOR ANOTHER IV PLACEMENT TO HAVE CT SCAN. PATIENT DENIES ANY PAIN OR DISCOMFORT. ABLE TO MAKE NEEDS KNOWN. PLAN OF CARE DISCUSSED, PATIENT VERBALIZED UNDERSTANDING. CALL LIGHT WITHIN REACH. WILL CONTINUE TO MONITOR.
[2021-03-26 20:00] VITALS: BP 117/72
--- NOTE | 2021-03-26 21:07 | NUR ---
PATIENT COMPLAINS OF CRAMPING ABD PAIN /10. PRN MEDICATION GIVEN WITH EDUCATION. PATIENT VERBALIZED UNDERSTANDING. CALL LIGHT WITHIN REACH. WILL CONTINUE TO MONITOR.
--- NOTE | 2021-03-26 22:07 | NUR ---
PATIENT IS SLEEPING, CHEST RISE AND FALL NOTED, NO SIGN OF DISTRESS. CALL LIGHT WITHIN REACH. WILL CONTINUE TO MONITOR.
--- NOTE | 2021-03-27 | NUR ---
ROUND CHECK. PATIENT IS SLEEPING, CHEST RISE AND FALL NOTED. NO SIGN OF DISTRESS. CALL LIGHT WITHIN REACH. WILL CONTINUE TO MONITOR.
--- NOTE | 2021-03-27 01:30 | NUR ---
IV INSERTION ON RIGHT AC 20G. CT WAS NOTIFIED. CALL LIGHT WITHIN REACH. WILL CONTINUE TO MONITOR.
--- NOTE | 2021-03-27 02:00 | NUR ---
ROUND CHECK. PATIENT IS SLEEPING, CHEST RISE AND FALL, NO SIGN OF RESPIRATORY DISTRESS. CALL LIGHT WITHIN REACH. WILL CONTINUE TO MONITOR.
[2021-03-27] MEDS: NACL 0.9% 1,000 ML IV SCH ×3 (03:30→18:31)
[2021-03-27 04:00] VITALS: BP 114/83
[2021-03-27] MEDS: MORPHINE SULFATE 2 MG/ML SYR IVP PRN ×4 (04:29→21:55)
--- NOTE | 2021-03-27 04:29 | NUR ---
PATIENT RETURN FROM CT. COMPLAINS OF ABD PAIN 06/19. PRN MEDICATION GIVEN WITH EDUCATION. PATIENT VERBALIZED UNDERSTANDING. CALL LIGHT WITHIN REACH. WILL CONTINUE TO MONITOR.
[2021-03-27] MEDS: ONDANSETRON 4 MG/2 ML VIAL IM/IVP PRN ×3 (06:23→16:36)
--- NOTE | 2021-03-27 06:23 | NUR ---
PATIENT REPORTS HAD 1 EPISODE OF VOMITING, AND FEELING NAUSEA. PRN ZOFRAN GIVEN WITH EDUCATION. PATIENT VERBALIZED UNDERSTANDING. NO SIGN OF DISTRESS NOTED. CALL LIGHT WITHIN REACH. WILL CONTINUE TO MONITOR.
--- NOTE | 2021-03-27 07:24 | NUR ---
ENDORSED PATIENT TO AM NURSE FOR CONTINUITY OF CARE. PATIENT IS STABLE.
--- NOTE | 2021-03-27 07:30 | NUR ---
RECEIVED PATIENT FROM ENTRY LEVEL LAB TECHNICIAN NURSE FOR CONTINUITY OF CARE. PATIENT A/A/O X4, RESTING IN BED. RESPIRATORY EVEN AND UNLABORED, ON ROOM AIR, NO SIGN OF DISTRESS NOTED. SKIN WARM, DRY, NON DIAPHORETIC. IV ON RIGHT HAND 24G INFUSING FLUIDS AND RAC 20G SALINE LOCKED. BOTH INTACT AND PATENT. PATIENT DENIES ANY PAIN OR DISCOMFORT. ABLE TO MAKE NEEDS KNOWN. PLAN OF CARE DISCUSSED, PATIENT VERBALIZED UNDERSTANDING. CALL LIGHT WITHIN REACH. WILL CONTINUE TO MONITOR.
[2021-03-27 08:00] VITALS: BP 105/59
--- NOTE | 2021-03-27 09:45 | NUR ---
NO SCHEDULED MEDS GIVEN. PT IS STABLE. DENIES PAIN AND NO S/S OF DISTRESS NOTED. WILL CONTINUE TO MONITOR.
--- NOTE | 2021-03-27 11:30 | NUR ---
PATIENT COMPLAINED OF 10/10 ABD PAIN W/ NAUSEA. ADMINISTERED PRN PAIN MEDICATION AND ZOFRAN IVP PER MD ORDERED.
--- NOTE | 2021-03-27 12:30 | NUR ---
ENDORSED TO RAJANI DAVIS FOR CONTINUITY OF CARE. PT IS STABLE.
--- NOTE | 2021-03-27 12:30 | NUR ---
PT ENDORSED BY RAJANI LEONG FOR CONTINUITY OF CARE. POC DISCUSSED. PT IS ASLEEP IN BED ON ROOM AIR WITH CHEST RISING AND FALLING EVEN AND UNLABORED. PT WAS LAST GIVEN MORPHINE AND ZOFRAN @ 1130. PT HAS A RIGHT AC 20 G SALINE LOCK. AND A RIGHT HAND 24 G RUNNING NS AT 150 ML. PT IS ON A REGULAR DIET. ALL SAFETY MEASURES IN PLACE, CALL LIGHT WITHIN REACH. WILL CONTINUE TO MONITOR.
[2021-03-27 14:05] LABS: FOLIC ACID 5.3 ng/mL (>3.0)
--- NOTE | 2021-03-27 14:30 | NUR ---
R HAND 24 G WAS REMOVED BY THE PT. CATH IN PLACE. PT STILL HAS A RIGHT AC 20 G THAT IS INTACT.
[2021-03-27 14:33] LABS: BASOPHILS # (AUTO) 0.2 K/uL (0.00-0.22); BASOPHILS % (AUTO) 2.3 % (0.0-2.0); EOSINOPHILS % (AUTO) 0.5 % (0.0-4.0); HEMATOCRIT 28.3 % (36-48); HEMOGLOBIN 9.2 g/dL (12.0-16.0); LYMPHOCYTES % (AUTO) 13.5 % (20.5-51.1); MEAN CORPUSCULAR HEMOGLOBIN 25 pg (27-31); MEAN CORPUSCULAR HGB CONC 32 g/dL (33-37); MEAN CORPUSCULAR VOLUME 76.9 fL (80-94); MONOCYTES # (AUTO) 0.3 K/uL (0.8-1.0); MONOCYTES % (AUTO) 4.3 % (1.7-9.3); NEUTROPHILS # (AUTO) 5.7 K/uL (1.8-7.7); NEUTROPHILS % (AUTO) 79.4 % (42.2-75.2); PLATELET COUNT (AUTO) 339 K/uL (140-450); RED BLOOD CELL COUNT(AUTO) 3.68 MIL/uL (4.20-5.40); RED CELL DISTRIBUTION WIDTH 17.7 % (11.6-13.7); WHITE BLOOD COUNT (AUTO) 7.2 K/uL (4.5-11.0)
[2021-03-27 14:41] LABS: ANION GAP 13.4 (8-16); CREATININE 0.6 mg/dL (0.6-1.3); POTASSIUM 3.4 mmol/L (3.5-5.1)
[2021-03-27 14:49] LABS: CHOL/HDL RATIO 2.5 (1-4.5); MAGNESIUM 1.9 mg/dL (1.8-2.4); PHOSPHORUS 3.5 mg/dL (2.5-4.9)
--- NOTE | 2021-03-27 14:57 | NUR ---
PT AMBULATED TO THE RESTROOM WITHOUT LETTING THE NURSE KNOW, EDUCATED THE PT ON THE IMPORTANCE OF LETTING THE NURSE KNOW SO THE IV CAN BE COVER AND NOT BE AFFECTED. PT VERBALIZED UNDERSTANDING. PT WAS BROUGHT NEW GOWN AND UNDER GARMENTS. PT EDUCATED ON PAIN MEDICATION ONLY BEING EVERY 4 HRS AND PT VERBALIZED UNDERSTANDING. AFTER PT GOT OUT OF THE SHOWER, IV WAS ASSESS AND THE R AC 20 G IS PATENT AND INTACT. ALL SAFETY MEASURES IN PLACE, CALL LIGHT WITHIN REACH. WILL CONTINUE TO MONITOR.
[2021-03-27 16:00] VITALS: BP 106/61
--- NOTE | 2021-03-27 16:36 | NUR ---
ADMINISTERED PRN PAIN MEDICATION AND ANTIEMETIC MEDICATION PER MD ORDER. PT EDUCATION PROVIDED, PT VERBALIZED UNDERSTANDING. ALL SAFETY MEASURES IN PLACE, CALL LIGHT WITHIN REACH. WILL CONTINUE TO MONITOR.
[2021-03-27] MEDS ORDERED: cefTRIAXone 1,000 MG VIAL ONE (16:46)
--- NOTE | 2021-03-27 18:30 | NUR ---
PT POTASSIUM WAS 3.4, WAS REPLACED WITH PRN K DUR PER MD ORDER. PT EDUCATION PREFORMED. PT VERBALIZED ALL NEEDS ARE MET. IV SITE PATENT AND RUNNING NS @ 150. SAFETY MEASURES IN PLACE, CALL LIGHT WITHIN REACH.
--- NOTE | 2021-03-27 19:24 | NUR ---
PT ENDORSED TO PHARMACY INFORMATICS MANAGER NURSE FOR CONTINUITY OF CARE. PT IN STABLE CONDITION
--- NOTE | 2021-03-27 19:25 | NUR ---
RECEIVED PATIENT FROM AM NURSE FOR CONTINUITY OF CARE. PATIENT IS SLEEPING, AROUSABLE TO VOICE. A/A/O X4. RESPIRATORY EVEN AND UNLABORED, ON ROOM AIR, NO SIGN OF DISTRESS NOTE. SKIN WARM, DRY, NON DIAPHORETIC. IV ON RIGHT AC 20G, INTACT AND PATENT, IS INFUSING FLUID ORDER. PATIENT DENIES ANY PAIN OR DISCOMFORT, ABLE TO MAKE NEED KNOWN. CALL LIGHT WITHIN REACH. WILL CONTINUE TO MONITOR.
[2021-03-27 20:00] VITALS: BP 125/85
[2021-03-27] MEDS: metroNIDAZOLE 500 MG/NS PREMIX 100 ML IV SCH (20:35)
--- NOTE | 2021-03-27 20:35 | NUR ---
SCHEDULE MEDICATIONS GIVEN WITH EDUCATION. PATIENT VERBALIZED UNDERSTANDING. PATIENT TOLERATED WELL. CALL LIGHT WITHIN REACH. WILL CONTINUE TO MONITOR.
--- NOTE | 2021-03-27 21:55 | NUR ---
PATIENT COMPLAINS OF ABD PAIN 10/10. PRN PAIN MEDICATION GIVEN WITH EDUCATION. PATIENT VERBALIZED UNDERSTANDING. CALL LIGHT WITHIN REACH. WILL CONTINUE TO MONITOR.
--- NOTE | 2021-03-28 | NUR ---
PATIENT IS SLEEPING, CHEST RISE AND FALL, NO SIGN OF DISTRESS NOTED. CALL LIGHT WITHIN REACH. WILL CONTINUE TO MONITOR.
[2021-03-28] MEDS: NACL 0.9% 1,000 ML IV SCH ×2 (02:00→07:20)
--- NOTE | 2021-03-28 02:10 | NUR ---
PATIENT AWAKE, AMBULATE TO BATHROOM AND ACCIDENTLY REMOVE IV, BLEEDING CONTROL. PATIENT IS HARD STICK. WILL CONTRACT ER FOR IV INSERTION.
[2021-03-28 04:00] VITALS: BP 135/83
[2021-03-28] MEDS: MORPHINE SULFATE 2 MG/ML SYR IVP PRN ×2 (04:04→08:23)
[2021-03-28] MEDS: metroNIDAZOLE 500 MG/NS PREMIX 100 ML IV SCH (04:05)
--- NOTE | 2021-03-28 04:05 | NUR ---
SCHEDULE MEDICATION GIVEN WITH EDUCATION. PATIENT COMPLAINS PAIN 10/10 ON HER ABDOMEN, PAIN MEDICATION PRN GIVEN WITH EDUCATION. PATIENT VERBALIZED UNDERSTANDING. PATIENT TOLERATED WELL. CALL LIGHT WITHIN REACH. WILL CONTINUE TO MONITOR.
[2021-03-28] MEDS: ONDANSETRON 4 MG/2 ML VIAL IM/IVP PRN (06:09)
--- NOTE | 2021-03-28 07:15 | NUR ---
RECEIVED BEDSIDE REPORT FROM ENGLISH LANGUAGE LEARNER TEACHER NURSE FOR CONTINUITY OF CARE. PT IS ASLEEP IN SUPINE POSITION. BREATHING IS UNLABORED ON RA. PT IS AMBULATORY INDEPENDENTLY. SKIN IS WARM, DRY, AND INTACT. IV IS IN THE RIGHT WRIST 22 GAUGE RUNNING NS AT 150 ML PER HOUR PER ORDER. PT IS STABLE. PLAN OF CARE DISCUSSED.
--- NOTE | 2021-03-28 08:23 | NUR ---
PT STATES SHE HAS PAIN IN THE ABDOMEN AT A SCALE OF 9/10. PT STATES THE PAIN ACHING IN CHARACTERISTIC. PT WAS GIVEN MORPHINE FOR PAIN. BP WAS 127/72 PRIOR TO ADMINISTRATION OF MEDICATION. PT DENIED ALLERGIES TO MEDICATION. WILL MONITOR PAIN.
--- NOTE | 2021-03-28 09:01 | NUR ---
PATIENT HAS BEEN SCREENED AND CATEGORIZED HIGH NUTRITION RISK. PATIENT WILL BE SEEN WITHIN 1-2 DAYS OF ADMISSION. 03/28/[address] Addendum: 03/28/21 at [address] [facility] REFERRAL RECEIVED FOR NAUSEA AND VOMITING OVER 3 DAYS.
[2021-03-28] MEDS ORDERED: DOCU-299 PO (09:12)
[2021-03-28] MEDS ORDERED: METR500T1 PO (09:12)
--- NOTE | 2021-03-28 09:46 | NUR ---
PT WAS GIVEN JUICE REQUESTED. PT TOLERATED BREAKFAST WELL. NO NAUSEA OR VOMITING. PT IS STABLE.
[2021-03-28 10:32] VITALS: BP 127/72
--- NOTE | 2021-03-28 11:05 | NUR ---
PT IS DISCHARGED. VS ARE STABLE. PT IS AMBULATORY INDEPENDENTLY. NO DISTRESS NOTED. PT DENIES PAIN OR N/V. DISCHARGE INSTRUCTIONS EXPLAINED AND PT VERBALIZED UNDERSTANDING.
[2021-03-28 12:59] LABS: T4 (THYROXINE) 9.4 ug/dL (4.5 - 12.0)
== END 2021-03-28 11:10 | disposition home or self-care (01) | DRG 392 ==
LOC: MED 06:15 → MTU 08:43
DX: R11.10 Vomiting, unspecified (principal); N39.0 Urinary tract infection, site not specified; E87.1 Hypo-osmolality and hyponatremia; Z20.822 Contact with and (suspected) exposure to COVID-19; Z88.8 Allergy status to other drugs, medicaments and biological substances; Z90.49 Acquired absence of other specified parts of digestive tract; F41.9 Anxiety disorder, unspecified; D47.3 Essential (hemorrhagic) thrombocythemia; E02 Subclinical iodine-deficiency hypothyroidism; D50.9 Iron deficiency anemia, unspecified; E86.0 Dehydration; E87.6 Hypokalemia
CPT/HCPCS: 36415; 80048; 80053; 80305; 81001; 82607; 82728; 82746; 83036; 83540; 83690; 83735; 83880; 84100; 84134; 84436; 84443; 84703; 85025; 85045; 85610; 85730; 87081; 87086; 96361; 96374; 96375; 99285; J0696; J1200; J1630; J2060; J2270; J2405; J3490; J7060; Q9967

== ENCOUNTER 2021-04-02 07:06 | Emergency (ER) | payer BC, SELFPAY ==
[~2021-04-02] VITALS: Ht 167.6 cm; Wt 67.6 kg
[~2021-04-02 07:06] MED LIST changes: -CAPS42.514 TP; -DIPH25TA53 PO; -FAMO-90 PO; -HYDR-1093 PO; -METO-485 PO; +METR500T1 PO; -NITR100C7 PO; -ONDA-24 PO; -ONDA4TAB PO
[2021-04-02 07:15] VITALS: BP 117/82
[2021-04-02] MEDS ORDERED: HALOPERIDOL IM 5 MG/ML VIAL IM ONE (07:20)
[2021-04-02] MEDS ORDERED: HALOPERIDOL IM 5 MG/ML VIAL ONE (07:33)
[2021-04-02] MEDS ORDERED: NACL 0.9% 1,000 ML IV ONE (07:35)
[2021-04-02] MEDS ORDERED: diphenhydrAMINE 50 MG/ML VIAL IM ONE (07:35)
[2021-04-02] MEDS ORDERED: diphenhydrAMINE 50 MG/ML VIAL ONE (07:40)
[2021-04-02 09:24] LABS: HEMATOCRIT 32.3 % (36-48); HEMOGLOBIN 10.4 g/dL (12.0-16.0)
[2021-04-02 09:29] LABS: EOSINOPHILS % (AUTO) 0.3 % (0.0-4.0); LYMPHOCYTES % (AUTO) 20.3 % (20.5-51.1); MEAN CORPUSCULAR HEMOGLOBIN 24 pg (27-31); MEAN CORPUSCULAR HGB CONC 32 g/dL (33-37); MEAN CORPUSCULAR VOLUME 75.4 fL (80-94); MONOCYTES # (AUTO) 0.5 K/uL (0.8-1.0); MONOCYTES % (AUTO) 11.6 % (1.7-9.3); NEUTROPHILS # (AUTO) 3.1 K/uL (1.8-7.7); NEUTROPHILS % (AUTO) 66.8 % (42.2-75.2); PLATELET COUNT (AUTO) 352 K/uL (140-450); RED BLOOD CELL COUNT(AUTO) 4.28 MIL/uL (4.20-5.40); RED CELL DISTRIBUTION WIDTH 17.2 % (11.6-13.7); WHITE BLOOD COUNT (AUTO) 4.7 K/uL (4.5-11.0)
[2021-04-02 09:37] LABS: BILIRUBIN,URINE 1+ (NEGATIVE); BLOOD, URINE NEGATIVE (NEGATIVE); COLOR,URINE YELLOW (YELLOW); LEUKOCYTE ESTERASE ,URINE NEGATIVE (NEGATIVE); NITRITE, URINE NEGATIVE (NEGATIVE); UGLUCOSE NEGATIVE (NEGATIVE)
[2021-04-02 09:46] LABS: ALBUMIN 4.2 g/dL (3.4-5.0); ANION GAP 8.3 (8-16); CARBON DIOXIDE 31.5 mmol/L (21-32); CREATININE 0.9 mg/dL (0.6-1.3); TOTAL BILIRUBIN 0.4 mg/dL (0.0-1.0)
[2021-04-02 09:56] LABS: RBC,URINE 0-5 /HPF (0-5); WBC,URINE 0-5 /HPF (0-5)
[2021-04-02 09:58] LABS: APPEARANCE,URINE HAZY (CLEAR); YEAST,URINE Rare /HPF (None Seen)
[2021-04-02 10:05] LABS: POTASSIUM 2.8 mmol/L (3.5-5.1)
== END 2021-04-02 09:04 | disposition home or self-care (01) ==
LOC: MED 07:06
DX: R11.15 Cyclical vomiting syndrome unrelated to migraine (principal); F12.10 Cannabis abuse, uncomplicated; Z88.8 Allergy status to other drugs, medicaments and biological substances
CPT/HCPCS: 36415; 80053; 81001; 81025; 83615; 83690; 85025; 96360; 96372; 99284; J1200; J1630; J7030

== ENCOUNTER 2021-04-04 11:50 | Emergency (ER) | payer BC ==
[~2021-04-04] VITALS: Ht 170.2 cm; Wt 54.4 kg
[2021-04-04 11:57] VITALS: BP 114/75
--- NOTE | 2021-04-04 12:26 | NUR ---
CALLED FOR PT, NOT IN LOBBY
--- NOTE | 2021-04-04 12:51 | NUR ---
called for pt again in lobby no response
--- NOTE | 2021-04-04 12:55 | NUR ---
Patient was called from lobby. Patient was not found.
--- NOTE | 2021-04-04 13:05 | NUR ---
CALLED FOR PT FROM LOBBY, NOT FOUND. ERMD AWARE PT LEFT FACILITY
== END 2021-04-04 12:26 | disposition left against medical advice (07) ==
LOC: MED 11:50
DX: R11.2 Nausea with vomiting, unspecified (principal); R10.9 Unspecified abdominal pain; Z53.21 Procedure and treatment not carried out due to patient leaving prior to being seen by health care provider

== ENCOUNTER 2021-04-07 06:55 | Emergency (ER) | payer BC ==
[~2021-04-07] VITALS: Ht 170.2 cm; Wt 54.4 kg
[2021-04-07 06:59] VITALS: BP 106/87
--- NOTE | 2021-04-07 07:01 | NUR ---
PATIENT AMBUALTED TO RESTROOM WITH STEADY GAIT.
--- NOTE | 2021-04-07 07:29 | NUR ---
20/F presents to ED with c/o abdominal pain, nausea and vomiting. Patient states she was seen here recently for the same symptoms and states she has had no improvement in symptoms. Patient states for one month she has been having multiple episodes nausea and vomiting, stating "I cannot keep anything down." Patient denies diarrhea, chest pain or shortness of breath, patient placed in gown, Dr. Carcamo at bedside.
[2021-04-07] MEDS ORDERED: diphenhydrAMINE 50 MG/ML VIAL IVP ONE (07:30)
[2021-04-07] MEDS ORDERED: NACL 0.9% 1,000 ML IV ONE (07:30)
[2021-04-07] MEDS ORDERED: HALOPERIDOL IM 5 MG/ML VIAL IM ONE (07:50)
[2021-04-07] MEDS ORDERED: LORazepam 2 MG/ML VIAL IM ONE (07:50)
[2021-04-07 10:30] VITALS: BP 105/67
--- NOTE | 2021-04-07 10:31 | NUR ---
Patient discharged with v/s stable. Written and verbal after care instructions given and explained. Patient verbalized understanding. Ambulatory with steady gait. All questions addressed prior to discharge. Advised to follow up with PMD.
== END 2021-04-07 10:31 | disposition home or self-care (01) ==
LOC: MED 06:55
DX: R11.2 Nausea with vomiting, unspecified (principal); E86.0 Dehydration; F12.10 Cannabis abuse, uncomplicated; Z88.8 Allergy status to other drugs, medicaments and biological substances
CPT/HCPCS: 96360; 96372; 99284; J1630; J2060; J7030

== ENCOUNTER 2021-06-11 08:50 | Emergency (ER) | payer BC ==
[~2021-06-11] VITALS: Ht 170.2 cm; Wt 59.0 kg
[2021-06-11 08:58] VITALS: BP 106/77
--- NOTE | 2021-06-11 09:06 | NUR ---
HANDED ON URINE CUP.
--- NOTE | 2021-06-11 09:16 | NUR ---
PT TAKEN TO ER BED 9.
--- NOTE | 2021-06-11 09:21 | NUR ---
dr. starks bedside evaluating pt
[2021-06-11] MEDS ORDERED: NACL 0.9% 1,000 ML IV SCH (09:25)
[2021-06-11] MEDS ORDERED: ONDANSETRON 4 MG ODT PO ONE (09:25)
[2021-06-11] MEDS ORDERED: ONDANSETRON 4 MG/2 ML VIAL IVP ONE (09:25)
--- NOTE | 2021-06-11 09:51 | NUR ---
20 Y FEMALE WITH C/O N/V, MID ABDOMINAL PAIN X 4 DAYS. PT STATED SHE STARTED TO EXPERIENCE THE ABDOMINAL PAIN RANDOMLY AND HAS BEEN UNABLE TO EAT OR DRINK ANYTHING. LAST BM WAS YESTERDAY AND WAS NORMAL. BOWEL SOUNDS ARE HYPOACTIVE AND ABDOMEN IS TENDER TO TOUCH. PT BELIEVES TO BE , AND STATED "SHE LAST HAD UNPROTECTED SEX X2 WEEKS AGO" PMH: CYLIC VOMITING SYNDROME ALLERGIES: HEPARIN
--- NOTE | 2021-06-11 10:04 | NUR ---
lab bedside with pt
[2021-06-11 10:24] LABS: BASOPHILS # (AUTO) 0.1 K/uL (0.00-0.22); BASOPHILS % (AUTO) 0.9 % (0.0-2.0); EOSINOPHILS % (AUTO) 0.2 % (0.0-4.0); HEMATOCRIT 38.9 % (36-48); HEMOGLOBIN 12.2 g/dL (12.0-16.0); LYMPHOCYTES # (AUTO) 1.4 K/uL (2.5-16.5); LYMPHOCYTES % (AUTO) 14.5 % (20.5-51.1); MEAN CORPUSCULAR HEMOGLOBIN 22 pg (27-31); MEAN CORPUSCULAR HGB CONC 31 g/dL (33-37); MEAN CORPUSCULAR VOLUME 71.4 fL (80-94); MONOCYTES # (AUTO) 0.8 K/uL (0.8-1.0); MONOCYTES % (AUTO) 8.6 % (1.7-9.3); NEUTROPHILS # (AUTO) 7.3 K/uL (1.8-7.7); NEUTROPHILS % (AUTO) 75.8 % (42.2-75.2); PLATELET COUNT (AUTO) 374 K/uL (140-450); RED BLOOD CELL COUNT(AUTO) 5.44 MIL/uL (4.20-5.40); RED CELL DISTRIBUTION WIDTH 17.1 % (11.6-13.7); WHITE BLOOD COUNT (AUTO) 9.6 K/uL (4.5-11.0)
[2021-06-11 10:34] LABS: ANION GAP 11.1 (8-16); CARBON DIOXIDE 33.7 mmol/L (21-32)
[2021-06-11 10:37] LABS: POTASSIUM 2.8 mmol/L (3.5-5.1)
[2021-06-11] MEDS ORDERED: POTASSIUM CHLORIDE 20% 40 MEQ/15 ML UDC PO ONE (10:40)
[2021-06-11] MEDS ORDERED: POTA10CE85 PO (10:41)
--- NOTE | 2021-06-11 11:14 | NUR ---
Patient appears to be resting comfortably in bed with eyes closed. Vital Signs within normal limits, but patient is a it tachy. ER MD made aware. Respirations even and unlabored.
--- NOTE | 2021-06-11 11:35 | NUR ---
PT AMBULATED TO RESTROOM. GAIT READY AND UA CUP GIVEN
--- NOTE | 2021-06-11 12:12 | NUR ---
PT REQUESTING TO GO HOME AND BE DISCHARGED.
[2021-06-11 12:39] VITALS: BP 114/89
--- NOTE | 2021-06-11 12:39 | NUR ---
Patient discharged with v/s stable. Written and verbal after care instructions given and explained. Patient alert, oriented and verbalized understanding of instructions. Ambulatory with steady gait. All questions addressed prior to discharge. ID band removed. Patient advised to follow up with PMD. Rx of POTASSIUM CHLORIDE given. Patient educated on indication of medication including possible reaction and side effects. Opportunity to ask questions provided and answered.
[2021-06-11 21:44] LABS: APPEARANCE,URINE CLOUDY (CLEAR); BILIRUBIN,URINE 1+ (NEGATIVE); BLOOD, URINE NEGATIVE (NEGATIVE); COLOR,URINE YELLOW (YELLOW); LEUKOCYTE ESTERASE ,URINE 1+ (NEGATIVE); NITRITE, URINE NEGATIVE (NEGATIVE); PH,URINE 6.5 (5.0-9.0); UGLUCOSE NEGATIVE (NEGATIVE)
[2021-06-11 21:53] LABS: RBC,URINE 0-5 /HPF (0-5)
== END 2021-06-11 12:39 | disposition home or self-care (01) ==
LOC: MED 08:50
DX: R11.2 Nausea with vomiting, unspecified (principal); R00.0 Tachycardia, unspecified; F12.10 Cannabis abuse, uncomplicated; Z88.8 Allergy status to other drugs, medicaments and biological substances; Z79.899 Other long term (current) drug therapy
CPT/HCPCS: 36415; 80048; 81001; 81025; 85025; 87086; 96361; 96374; 99283; J2405; J7030

== ENCOUNTER 2021-11-26 06:46 | Emergency (ER) | payer SELFPAY ==
[~2021-11-26] VITALS: Ht 170.2 cm; Wt 59.0 kg
[~2021-11-26 06:46] MED LIST changes: +POTA10CE85 PO
[2021-11-26 06:49] VITALS: BP 117/65
--- NOTE | 2021-11-26 06:57 | NUR ---
WALKED INTO BR FROM TRIAGE, VOMITING
--- NOTE | 2021-11-26 07:00 | NUR ---
AMBULATED TO BED 11 FROM BR
[2021-11-26] MEDS ORDERED: CAPSAICIN 0.025% CRE 60 GM TUBE TP SCH (07:10)
[2021-11-26] MEDS ORDERED: HALOPERIDOL IM 5 MG/ML VIAL IM ONE ×2 (07:10→10:35)
[2021-11-26] MEDS ORDERED: ALUMINUM HYD/MAG/SIMETHICONE 30 ML UDC PO ONE ×2 (07:10→08:50)
[2021-11-26] MEDS ORDERED: ONDANSETRON 4 MG/2 ML VIAL IM ONE (07:35)
--- NOTE | 2021-11-26 07:52 | NUR ---
lab at bedside collecting bloodwork
[2021-11-26 08:15] LABS: BASOPHILS # (AUTO) 0.1 K/uL (0.00-0.22); BASOPHILS % (AUTO) 0.6 % (0.0-2.0); EOSINOPHILS % (AUTO) 0.1 % (0.0-4.0); HEMATOCRIT 36.6 % (36-48); HEMOGLOBIN 11.7 g/dL (12.0-16.0); LYMPHOCYTES # (AUTO) 1.1 K/uL (2.5-16.5); LYMPHOCYTES % (AUTO) 9.8 % (20.5-51.1); MEAN CORPUSCULAR HEMOGLOBIN 23 pg (27-31); MEAN CORPUSCULAR HGB CONC 32 g/dL (33-37); MEAN CORPUSCULAR VOLUME 72.1 fL (80-94); MONOCYTES # (AUTO) 0.6 K/uL (0.8-1.0); MONOCYTES % (AUTO) 5.4 % (1.7-9.3); NEUTROPHILS # (AUTO) 9.4 K/uL (1.8-7.7); NEUTROPHILS % (AUTO) 84.1 % (42.2-75.2); PLATELET COUNT (AUTO) 478 K/uL (140-450); RED BLOOD CELL COUNT(AUTO) 5.07 MIL/uL (4.20-5.40); WHITE BLOOD COUNT (AUTO) 11.1 K/uL (4.8-10.8)
--- NOTE | 2021-11-26 08:51 | NUR ---
21 Y/O FEMALE BIB SELF C/P "SEVERE" ABDOMINAL PAIN 10/10/VOMITING X 2 DAYS. PT DENIES DIARRHEA/CONSTIPATION. PT DENIES ALLEVIATING FACTORS. PT DENIES FEVER OR CHILLS. PT ALERST AND ORIENTED X4. PMH DENIES ALLERGIES : HEPARIN
[2021-11-26] MEDS ORDERED: diphenhydrAMINE 50 MG/ML VIAL IM ONE (10:35)
[2021-11-26] MEDS ORDERED: NACL 0.9% 1,000 ML IV ONE (10:40)
--- NOTE | 2021-11-26 11:40 | NUR ---
PT ACTIVELY VOMITTING BEDSIDE AT THIS TIME
[2021-11-26] MEDS ORDERED: diphenhydrAMINE 50 MG/ML VIAL IVP ONE (11:55)
[2021-11-26] MEDS ORDERED: ONDA-188 PO (12:08)
[2021-11-26 12:25] LABS: ALBUMIN 4.8 g/dL (3.4-5.0); CARBON DIOXIDE 24.4 mmol/L (21-32); CREATININE 1.1 mg/dL (0.6-1.3); POTASSIUM 3.4 mmol/L (3.5-5.1); TOTAL BILIRUBIN 0.4 mg/dL (0.0-1.0)
[2021-11-26 12:43] VITALS: BP 134/91
--- NOTE | 2021-11-26 12:44 | NUR ---
Patient does not wish to proceed with medical care recommended by DR. BOYLE. Patient given information related to possible complications, up to and including , which could occur as a result of leaving hospital at this time. Patient verbalizes understanding of risks involved leaving against medical advice. Patient has signed AMA form.
== END 2021-11-26 12:32 | disposition left against medical advice (07) ==
LOC: MED 06:46
DX: R11.2 Nausea with vomiting, unspecified (principal); R10.84 Generalized abdominal pain; F17.200 Nicotine dependence, unspecified, uncomplicated; F12.90 Cannabis use, unspecified, uncomplicated; Z90.49 Acquired absence of other specified parts of digestive tract; Z79.899 Other long term (current) drug therapy; Z88.8 Allergy status to other drugs, medicaments and biological substances
CPT/HCPCS: 36415; 36569; 80053; 81002; 81025; 83690; 85025; 96361; 96372; 96374; 96375; 96376; 99285; J1200; J1630; J2405; J7030